=== PATIENT | male | born 1950 | race Caucasian/White ===

== ENCOUNTER 2018-07-16 16:07 | Inpatient (IN) | payer MEDICARE ==
[2018-07-16] MEDS ORDERED: NALOXONE 0.4 MG/ML 1 ML VIAL IV PRN (16:12)
[2018-07-16] MEDS ORDERED: SODIUM CHLORIDE 0.9% 500 ML 500 ML IV ONE (16:15)
--- NOTE | 2018-07-16 16:16 | ED ---
General Adult HPI - General Stated complaint: hypotensive, Weakness Time Seen by Provider: 07/16/18 16:09 Source: patient, EMS, RN notes reviewed, old records reviewed - History of Present Illness Initial comments: 68-year-old male presenting for evaluation of acute renal failure, dehydration, and hypotension. Patient was transferred from outside hospital with acute renal failure, need for nephrology consultation. Patient has no previous history of renal failure. He presented initially emergency department with increased weakness. Decreased oral intake. Laboratory studies obtained at outside hospital revealed acute renal failure with creatinine 4.7, and BUN of 96. Patient's baseline creatinine is 1.2. Patient did receive workup and 2.5 L of IV hydration. On arrival patient's blood pressure has normalized. He has no complaints other than some generalized fatigue. No chest pain, no dyspnea, no fever chills, no dysuria or hematuria. Review of Systems ROS Statement: Those systems with pertinent positive or pertinent negative responses have been documented in the HPI. ROS Other: All systems not noted in ROS Statement are negative. General Exam General appearance: alert, in no apparent distress Head exam: Present: atraumatic, normocephalic Eye exam: Present: normal appearance, PERRL ENT exam: Present: mucous membranes dry Neck exam: Present: normal inspection. Absent: tenderness, meningismus Respiratory exam: Present: normal lung sounds bilaterally. Absent: respiratory distress, wheezes Cardiovascular Exam: Present: regular rate, normal rhythm GI/Abdominal exam: Present: soft. Absent: distended, tenderness, guarding Extremities exam: Present: normal inspection, normal capillary refill. Absent: pedal edema Neurological exam: Present: alert, oriented X3, CN II-XII intact. Absent: motor sensory deficit Psychiatric exam: Present: normal affect, normal mood Skin exam: Present: warm, dry, intact. Absent: cyanosis, diaphoretic Medical Decision Making - Medical Decision Making 68-year-old male transferred with acute renal failure. Laboratory studies from outside hospital reviewed, white blood cell count 14.4, hemoglobin 10.8, sodium 132, potassium 3.9, CO2 is 17, creatinine 4.7, BUN 96. Baseline creatinine 1.2. Acidosis likely secondary to uremia. He had a normal lactic acid. Troponin was negative. Urinalysis has not available medical record, this will be repeated. Head CT was reported as negative for any acute intracranial pathology according to the medical record. Chest x-ray was reported as COPD with no acute findings. These images will be loaded, however they're not available at the time of this dictation. All laboratory studies will be repeated. Patient will be kept on IV hydration. Patient will be admitted with nephrology on consult. Disposition Clinical Impression: Acute renal failure, Dehydration, Generalized weakness Disposition: ADMITTED IP TO THIS [facility] Condition: Stable Is patient prescribed a controlled substance at d/c from ED?: No Referrals: Marco A Cruz MD [Primary Care Provider] - 1-2 days Decision to Admit Reason: Admit from EC Decision Date: 07/16/18 Decision Time: 16:20
[2018-07-16] MEDS: SODIUM CHLORIDE 0.9% 1,000 ML IV SCH (16:23)
[2018-07-16 16:53] LABS: Basophils % (A) 0 %; Eosinophils # (A) 0.1 k/uL (0-0.7); Eosinophils % (A) 0 %; HCT 31.3 % (39.0-53.0); HGB 10.5 gm/dL (13.0-17.5); Lymphocytes # (A) 0.8 k/uL (1.0-4.8); Lymphocytes % (A) 6 %; MCH 30.2 pg (25.0-35.0); MCHC 33.6 g/dL (31.0-37.0); Mean Platelet Volume 9.6; Monocytes # (A) 0.5 k/uL (0-1.0); Monocytes % (A) 4 %; Neutrophils # (A) 11.9 k/uL (1.3-7.7); Neutrophils % (A) 87 %; Platelet Count 192 k/uL (150-450); RBC 3.47 m/uL (4.30-5.90); RDW 14.8 % (11.5-15.5); WBC 13.7 k/uL (3.8-10.6)
[2018-07-16 17:12] LABS: Albumin 3.1 g/dL (3.5-5.0); Calcium 7.6 mg/dL (8.4-10.2); Magnesium 2.7 mg/dL (1.6-2.3); Phosphorus 4.4 mg/dL (2.5-4.5); Potassium 3.6 mmol/L (3.5-5.1); Total Bilirubin 0.9 mg/dL (0.2-1.3); Total Protein 6.3 g/dL (6.3-8.2)
[2018-07-16] MEDS ORDERED: HYDROcodone/APAP 5-325MG 1 EACH TAB PO STA (18:08)
[2018-07-16 19:28] LABS: Appearance,Urine Turbid (Clear); Bacteria,Urine Many /hpf; Bilirubin,Urine Negative (Negative); Blood,Urine Moderate (Negative); Color,Urine Yellow; Glucose,Urine (UA) Negative (Negative); Ketones,Urine Negative (Negative); Leukocyte Esterase,Urine Large (Negative); Nitrite,Urine Negative (Negative); Protein,Urine 2+ (Negative); RBC,Urine 51 /hpf (0-5); Specific Gravity,Urine 1.016 (1.001-1.035); Urobilinogen,Urine <2.0 mg/dL (<2.0); WBC,Urine >182 /hpf (0-5)
[2018-07-16] MEDS: ACETAMINOPHEN TAB 325 MG TAB PO PRN (23:36)
[2018-07-16] MEDS: FAMOTIDINE 20 MG TAB PO SCH (23:37)
[2018-07-16] MEDS: CARVEDILOL 12.5 MG TAB PO SCH (23:38)
[2018-07-17] MEDS: INSULIN DETEMIR (LEVEMIR) 100 UNIT/ML SYR SQ SCH ×3 (00:10→21:45)
[2018-07-17] MEDS: LEVOFLOXACIN 250 MG TAB PO SCH ×2 (00:11→21:42)
[2018-07-17 00:25] LABS: Glucose,Whole Blood 129 mg/dL (75-99)
[2018-07-17 05:08] LABS: Glucose,Whole Blood 71 mg/dL (75-99)
[2018-07-17 05:57] LABS: Glucose,Whole Blood 104 mg/dL (75-99)
[2018-07-17 06:29] LABS: Glucose,Whole Blood 82 mg/dL (75-99)
[2018-07-17] MEDS: CARVEDILOL 12.5 MG TAB PO SCH ×2 (06:43→17:08)
[2018-07-17] MEDS: SODIUM CHLORIDE 0.9% 1,000 ML IV SCH ×3 (07:56→16:42)
[2018-07-17] MEDS: ASPIRIN 325 MG TAB PO SCH (08:55)
[2018-07-17] MEDS: FAMOTIDINE 20 MG TAB PO SCH (08:56)
[2018-07-17] MEDS: CLOPIDOGREL 75 MG TAB PO SCH (08:56)
[2018-07-17] MEDS: EZETIMIBE 10 MG TAB PO SCH (08:56)
[2018-07-17 11:48] LABS: Glucose,Whole Blood 138 mg/dL (75-99)
--- NOTE | 2018-07-17 15:22 | HP ---
HISTORY AND PHYSICAL CHIEF COMPLAINT: Weakness. HISTORY OF PRESENT ILLNESS: This is the first known admission for this 68-year-old elderly male. He is brought to the emergency room and he may be confused. He states only that he was weak. In the emergency room, his blood pressure is low and it was felt that he was in possibly acute renal failure. There is a question whether he has had a myocardial infarction in the past and he is also all probably diabetic. Emergency room information was scant. Laboratory studies on admission revealed a white count of 13,700 with a hemoglobin of 10.5. Electrolytes were unremarkable. Calcium was low at 7.6 and magnesium was low at 2.7. Blood sugar was 129. It looked as though he had a urinary tract infection. BUN was 96 with creatinine of 4.45. Review of systems was essentially unobtainable. PHYSICAL EXAM: Blood pressure is 84/54 with a pulse of 73, respirations of 25 and he had a temperature of a 100.3. Head, ears, eyes, nose, mouth, and throat were unremarkable except for his esposito. His pupils equal, round, and seen to be engaged and seemed to be conjugate. Neck veins could not be assessed. Chest seems to be clear, but he did not take deep breaths. Cardiac exam demonstrated what sounded like sinus rhythm and no murmurs or extra sounds. Abdomen is soft and nontender and extremities were unremarkable. Other than what seemed to be confusion, he seemed to be neurologically intact. IMPRESSION: 1. Generalized weakness. 2. Dehydration. 3. Urinary tract infection. 4. Hypotension. 5. Renal failure. PLAN: 1. Bed rest. 2. IV fluids. 3. Rehydrate. 4. Consult with Nephrology. 5. Antibiotics. MMODL / IJN: [id number] /
[2018-07-17 17:03] LABS: Glucose,Whole Blood 118 mg/dL (75-99)
[2018-07-17] MEDS: Exenatide Microspheres [Bydureon Pen] 2 MG SQ SCH (17:23)
--- NOTE | 2018-07-17 18:32 | XR ---
EXAMINATION TYPE: XR chest 1V DATE OF EXAM: 07/17/2018 COMPARISON: Yesterday HISTORY: Heart failure TECHNIQUE: Single frontal view of the chest is obtained. FINDINGS: Portable chest shows no heart failure nor confluent pneumonic infiltrate. Costophrenic ang les are clear. There are sternal wires. There are chest leads. IMPRESSION: No active cardiopulmonary disease. No change.
--- NOTE | 2018-07-17 19:21 | US ---
EXAMINATION TYPE: US renals and bladder DATE OF EXAM: 07/17/2018 COMPARISON: NONE CLINICAL HISTORY: rf. EXAM MEASUREMENTS: Right Kidney: 11.7 x 4.8 x 5.4 cm Left Kidney: 11.5 x 6.7 x 6.2cm Patient of large body habitus. Splenomegaly noted, 16.5cm Right Kidney: No hydronephrosis or masses seen Left Kidney: No hydronephrosis or masses seen Bladder: wnl IMPRESSION: No renal mass or obstruction. There is moderate splenomegaly.
[2018-07-17 20:35] LABS: Glucose,Whole Blood 117 mg/dL (75-99)
--- NOTE | 2018-07-17 22:02 | PN ---
PROGRESS NOTE DATE OF SERVICE: 07/17/2018 CHIEF COMPLAINT: Hypotension, dehydration and renal failure with prerenal azotemia. HISTORY OF PRESENT ILLNESS: This gentleman is just about the same. He seems slightly more alert. He is still dehydrated. PHYSICAL EXAMINATION: Chest is clear. Cardiac exam is normal. The abdomen is soft. Skin is dry. He is a little bit more alert than on admission. IMPRESSION: 1. Hypotension. 2. Dehydration. 3. Acute renal failure. PLAN: Continue with rehydration and then repeat labs. MMODL / IJN: [id number] /
[2018-07-17] MEDS: ACETAMINOPHEN TAB 325 MG TAB PO PRN (22:56)
--- NOTE | 2018-07-17 22:56 | CONS ---
CONSULTATION REASON FOR CONSULT: Renal failure. HISTORY OF PRESENT ILLNESS: The patient is a 68-year-old male who was admitted to the hospital with complaints of weakness and not feeling well. He was also short of breath. The patient denies any prior history of kidney diseases. His blood pressure was low at about 106 mmHg systolic when he came in, however, it appears that he has been as low as 85 mm of Hg. Serum creatinine was 4.45 mg/dL yesterday. Previous labs are not available in the computer. The patient did admit to history of use of NSAIDs prior to admission. He had been on Motrin for back pain. The patient denies any chest pains. He did not have any abdominal pain or diarrhea. No nausea or vomiting. PAST MEDICAL HISTORY: Hypertension, type 2 diabetes, osteoarthritis, dyslipidemia, and gastroesophageal reflux disease. SOCIAL HISTORY: Negative for smoking, drug abuse or alcohol abuse. MEDICATIONS: Medications at home prior to admission included Ultram, Zantac, Mevacor, insulin, Motrin, Zetia, Coreg, Plavix, aspirin, vitamin C. REVIEW OF SYSTEMS: As per HPI. Other systems negative. PHYSICAL EXAMINATION: Patient is comfortable. He is not in any acute distress. He is alert and oriented x3. Blood pressure this morning was 116/56, heart rate of 78 per minute, patient is afebrile. Examination of the heart S1, S2. Examination lungs bilateral breath sounds are heard. Abdomen is soft, nontender, obese. Examination lower extremities shows no significant edema. CROSS ENTERPRISE INTEGRATOR exam is grossly intact. Patient moving all 4 extremities. LAB: From yesterday, sodium 135, potassium 3.6, BUN 96, serum creatinine 4.45, calcium 7.6, magnesium 2.7, albumin 3.1. UA shows 2+ protein, WBCs more than 182, moderate blood. ASSESSMENT: 1. Acute kidney injury secondary to hypotension and NSAIDs as well as underlying urine tract infection, maintained on IV fluids. Maintain patient off of RUY inhibitors and NSAIDs. Repeat labs today. 2. Urinary tract infection maintained on antibiotics. Follow up on urine cultures. 3. Anemia, rule out iron deficiency. 4. Rule out chronic kidney disease. 5. Non-gap metabolic acidosis secondary to renal failure. 6. Dyslipidemia. 7. Type 2 diabetes. PLAN: Maintain patient on IV fluids. Check chest x-ray. Repeat labs today. Avoid NSAIDs and avoid RUY inhibitors. Thank you for this consultation. We will continue to follow the patient with you during his hospitalization. MMMALIK / LIYAHN: [id number] /
[2018-07-18] MEDS: SODIUM CHLORIDE 0.9% 1,000 ML IV SCH ×2 (00:32→08:45)
[2018-07-18 06:24] LABS: Glucose,Whole Blood 85 mg/dL (75-99)
[2018-07-18 06:42] LABS: Basophils % (A) 0 %; Eosinophils % (A) 0 %; HCT 31.7 % (39.0-53.0); HGB 9.8 gm/dL (13.0-17.5); Hypochromasia Slight; Lymphocytes # (A) 0.5 k/uL (1.0-4.8); Lymphocytes % (A) 5 %; MCH 28.9 pg (25.0-35.0); MCHC 30.9 g/dL (31.0-37.0); MCV 93.4 fL (80.0-100.0); Mean Platelet Volume 8.8; Monocytes # (A) 0.5 k/uL (0-1.0); Monocytes % (A) 5 %; Neutrophils # (A) 8.3 k/uL (1.3-7.7); Neutrophils % (A) 87 %; Platelet Count 172 k/uL (150-450); RDW 14.6 % (11.5-15.5); WBC 9.5 k/uL (3.8-10.6)
[2018-07-18 06:49] LABS: Potassium 4.3 mmol/L (3.5-5.1)
[2018-07-18] MEDS: CARVEDILOL 12.5 MG TAB PO SCH ×2 (07:31→17:16)
[2018-07-18] MEDS: ASPIRIN 325 MG TAB PO SCH (08:49)
[2018-07-18] MEDS: CLOPIDOGREL 75 MG TAB PO SCH (08:49)
[2018-07-18] MEDS: FAMOTIDINE 20 MG TAB PO SCH (08:49)
[2018-07-18] MEDS: INSULIN DETEMIR (LEVEMIR) 100 UNIT/ML SYR SQ SCH ×2 (08:49→22:11)
[2018-07-18] MEDS: EZETIMIBE 10 MG TAB PO SCH (08:49)
[2018-07-18 11:30] LABS: Glucose,Whole Blood 201 mg/dL (75-99)
[2018-07-18] MEDS: INSULIN ASPART (NovoLOG) 100 UNIT/ML VIAL SQ SCH ×4 (13:37→22:11)
[2018-07-18 15:53] LABS: Albumin 2.6 g/dL (3.5-5.0); Calcium 7.9 mg/dL (8.4-10.2); Potassium 4.1 mmol/L (3.5-5.1); Total Bilirubin 1.3 mg/dL (0.2-1.3); Total Protein 5.4 g/dL (6.3-8.2)
[2018-07-18 15:59] LABS: Appearance,Urine Turbid (Clear); Bacteria,Urine Occasional /hpf; Bilirubin,Urine Negative (Negative); Blood,Urine Large (Negative); Color,Urine Light Red; Glucose,Urine (UA) Negative (Negative); Ketones,Urine Negative (Negative); Leukocyte Esterase,Urine Large (Negative); Nitrite,Urine Negative (Negative); PH, Urine 5.5 (5.0-8.0); Protein,Urine 1+ (Negative); RBC,Urine >182 /hpf (0-5); Specific Gravity,Urine 1.018 (1.001-1.035); Urobilinogen,Urine <2.0 mg/dL (<2.0)
--- NOTE | 2018-07-18 16:05 | PN ---
PROGRESS NOTE CHIEF COMPLAINT: Hypotension, dehydration, acute renal failure and weakness. HISTORY OF PRESENT ILLNESS: This gentleman is improving slightly, but he is still not very active. He is still short of breath. PHYSICAL EXAMINATION: He has rales at the bases. Cardiac exam is normal. Abdomen is soft and nontender. It is protuberant. IMPRESSION: 1. Hypotension. 2. Dehydration. 3. Prerenal azotemia. 4. Chronic renal failure. 5. Diabetes. 6. Anemia. PLAN: Continue to monitor and follow hemoglobin, which is 9.8. Kidney function is also being watched, and his BUN is down this 77 with a creatinine of 3.2. Will send his urine for culture. Will repeat labs and a chest x-ray and set up discharge planning. MMZANEL / LIYAHN: [id number] /
[2018-07-18 16:15] LABS: Basophils % (A) 0 %; Eosinophils % (A) 0 %; HCT 32.2 % (39.0-53.0); HGB 10.2 gm/dL (13.0-17.5); Hypochromasia Slight; Lymphocytes # (A) 0.5 k/uL (1.0-4.8); Lymphocytes % (A) 6 %; MCH 29.6 pg (25.0-35.0); MCHC 31.6 g/dL (31.0-37.0); MCV 93.5 fL (80.0-100.0); Mean Platelet Volume 9.1; Monocytes # (A) 0.3 k/uL (0-1.0); Monocytes % (A) 4 %; Neutrophils # (A) 7.7 k/uL (1.3-7.7); Neutrophils % (A) 89 %; Platelet Count 193 k/uL (150-450); RBC 3.44 m/uL (4.30-5.90); RDW 14.9 % (11.5-15.5); WBC 8.6 k/uL (3.8-10.6)
[2018-07-18 16:20] LABS: Glucose,Whole Blood 207 mg/dL (75-99)
[2018-07-18] MEDS: DEXTROSE 5% IN WATER 1,000 ML with SODIUM BICARB (1 MEQ/ML) 150 ML IV SCH (17:00)
--- NOTE | 2018-07-18 17:12 | PN ---
PROGRESS NOTE Patient is seen for followup for acute kidney injury. The patient is maintained on IV fluids. Renal function is improved with creatinine going down to 3.29 from 4.45 on initial admission. Overall, patient states he feels slightly better. He has been voiding. PHYSICAL EXAMINATION: Blood pressure was 131/63, heart rate 77 per minute. He is afebrile. Examination of the heart S1, S2. Examination lungs bilateral breath sounds are heard. Abdomen is soft, nontender. Examination lower extremities shows no significant edema. PHOTOGRAPHIC LITHOGRAPHER exam is grossly intact. LAB: Show sodium 139, potassium 4.6, chloride 115, CO2 is 14. BUN 77, serum creatinine 3.29, hemoglobin 9.8 g/dL. UA shows 1+ protein, blood large, RBCs more than 182. ASSESSMENT: 1. Acute kidney injury secondary to NSAIDs and hypotension and underlying urinary tract infection, maintained on IV fluids, currently improving. Patient is off of RUY inhibitors. 2. Urinary tract infection maintained on antibiotics. Follow up on urine cultures. 3. Possible underlying chronic kidney disease. 4. Non-gap metabolic acidosis secondary to renal failure, start IV bicarb. 5. Dyslipidemia. 6. Type 2 diabetes. PLAN: Change IV fluids to IV bicarb. Repeat labs in a.m. Continue to avoid nephrotoxic medications. MMODL / IJN: [id number] /
--- NOTE | 2018-07-18 17:18 | XR ---
EXAMINATION TYPE: XR chest 2V DATE OF EXAM: 07/18/2018 COMPARISON: 07/17/2018 HISTORY: Short of breath TECHNIQUE: Frontal and lateral views of the chest are obtained. FINDINGS: Heart is enlarged. There is pulmonary edema. There are chest leads. There are sternal wire s. Costophrenic angles are fairly clear. IMPRESSION: There is evidence of congestive heart failure that is new compared to yesterday exam.
[2018-07-18] MEDS ORDERED: FUROSEMIDE 10 MG/ML 2 ML VIAL IV STA (20:03)
[2018-07-18] MEDS: LEVOFLOXACIN 250 MG TAB PO SCH (20:25)
[2018-07-18 20:56] LABS: Glucose,Whole Blood 202 mg/dL (75-99)
--- NOTE | 2018-07-18 22:00 | NM ---
EXAMINATION TYPE: NM pul vent and perfuse DATE OF EXAM: 07/18/2018 COMPARISON: NONE HISTORY: TECHNIQUE: Utilizing inhalation of 67.1 mCi Tc 99m DTPA aerosol and intravenous injection of 5.13 mC i of Tc 99m MAA, ventilation and perfusion images are acquired post injection in multiple projections . FINDINGS: There is fairly normal tracer distribution on the ventilation images. Perfusion images are within nor mal limits. There is no mismatch. IMPRESSION: Negative exam. There is a very low probability of pulmonary embolism.
[2018-07-19] MEDS: DEXTROSE 5% IN WATER 1,000 ML with SODIUM BICARB (1 MEQ/ML) 150 ML IV SCH (03:51)
[2018-07-19 04:55] LABS: Glucose,Whole Blood 145 mg/dL (75-99)
[2018-07-19 06:41] LABS: Basophils % (A) 0 %; Eosinophils # (A) 0.1 k/uL (0-0.7); Eosinophils % (A) 1 %; HCT 30.7 % (39.0-53.0); HGB 9.6 gm/dL (13.0-17.5); Hypochromasia Slight; Lymphocytes # (A) 0.5 k/uL (1.0-4.8); Lymphocytes % (A) 4 %; MCH 28.5 pg (25.0-35.0); MCHC 31.4 g/dL (31.0-37.0); MCV 90.9 fL (80.0-100.0); Mean Platelet Volume 8.4; Monocytes # (A) 0.5 k/uL (0-1.0); Monocytes % (A) 5 %; Neutrophils # (A) 9.5 k/uL (1.3-7.7); Neutrophils % (A) 88 %; Platelet Count 189 k/uL (150-450); RBC 3.38 m/uL (4.30-5.90); RDW 14.8 % (11.5-15.5); WBC 10.7 k/uL (3.8-10.6)
[2018-07-19 06:51] LABS: Calcium 8.1 mg/dL (8.4-10.2); Potassium 4.1 mmol/L (3.5-5.1)
[2018-07-19] MEDS: CARVEDILOL 12.5 MG TAB PO SCH ×2 (07:16→17:29)
[2018-07-19] MEDS: INSULIN ASPART (NovoLOG) 100 UNIT/ML VIAL SQ SCH ×7 (07:16→22:30)
[2018-07-19] MEDS ORDERED: FUROSEMIDE 10 MG/ML 4 ML VIAL IV STA (07:24)
[2018-07-19] MEDS: EZETIMIBE 10 MG TAB PO SCH (08:14)
[2018-07-19] MEDS: ASPIRIN 325 MG TAB PO SCH (08:14)
[2018-07-19] MEDS: FAMOTIDINE 20 MG TAB PO SCH (08:14)
[2018-07-19] MEDS: CLOPIDOGREL 75 MG TAB PO SCH (08:15)
[2018-07-19 11:30] LABS: Glucose,Whole Blood 154 mg/dL (75-99)
--- NOTE | 2018-07-19 11:40 | PN ---
PROGRESS NOTE Patient is seen for followup for acute kidney injury. He has been maintained on IV fluids. However, last night, patient was increasingly short of breath and chest x-ray showed evidence of pulmonary vascular congestion. Therefore, IV fluids were held. The patient also received a dose of Lasix 20 mg IV push. He is still complaining of shortness of breath. He denies any chest pains. The patient has been voiding. His 24 hour urine output is about 2.2 L. PHYSICAL EXAMINATION: Blood pressure this morning was 125/65, heart rate is 72 per minute, patient is afebrile. Examination of the heart S1, S2. Examination lungs, bilateral basal crackles are heard. Abdomen is soft, obese. Examination of lower extremities shows no significant edema. HALVER MACHINE OPERATOR exam is grossly intact. LABS: Show hemoglobin 9.6, sodium 140, potassium 4.1, chloride 114, BUN 75, serum creatinine 3.24, calcium was 8.1. ASSESSMENT: 1. Acute kidney injury, nonoliguric. Renal function has improved to some degree with IV fluids. However, the creatinine remains elevated at 3.24. On admission it was at 4.45. We do not have any previous labs available for comparison. This may be close to his baseline if the patient has underlying significant chronic kidney disease. There is no evidence of obstruction noted on the kidney ultrasound and the UA shows 1+ protein and significant pyuria. Urine culture is in progress. Patient is maintained on antibiotics. I will order a set of serologies given the underlying proteinuria and the negative urine cultures given the significant pyuria. We should also try and obtain his previous labs as outpatient for baseline renal function. 2. Volume overload. Continue off of IV fluids. I will repeat another dose of Lasix this morning. 3. Rule out cardiomyopathy. Recommend checking an echocardiogram for ejection fraction. 4. Non gap metabolic acidosis secondary to renal failure. We can switch to oral sodium bicarb. The acidosis is improved. PLAN: Check serologies, check urine eosinophils, repeat IV Lasix. Check echocardiogram and check iron studies as well. MMODL / IJN: [id number] /
[2018-07-19 16:36] LABS: Glucose,Whole Blood 178 mg/dL (75-99)
--- NOTE | 2018-07-19 17:37 | DS ---
DISCHARGE SUMMARY CHIEF COMPLAINT: Hypotension, dehydration, renal failure. HISTORY OF PRESENT ILLNESS AND PHYSICAL EXAM: The details of this man's history and physical can be found in the initial workup. LABORATORY STUDIES: While he was in the hospital, he had laboratory studies, details of which can be found in the laboratory section of his chart. COURSE IN HOSPITAL: After admission, he was placed on bedrest, started on intravenous fluids and rehydrated. His blood pressures remained somewhat out of control and he was in renal failure. He was also anemic with hemoglobin of 9.6. There was no GI bleeding. He continued to improve. Initially his suggested that she would prefer he go to rehab, but the case was discussed with the patient and he refused. He was doing well enough that it was felt that he could go home on the . He will go home on light activity about the house. No added salt, cardiac complex carbohydrate diet. His insulin management will be decreased from what it had been at home. He will remain on his other medications. He will either follow up with his own physician or come to my office. He does live a ways from [facility]. FINAL DIAGNOSES: 1. Dehydration. 2. Prerenal azotemia. 3. Chronic renal failure. 4. Poorly-controlled type 2 insulin-dependent diabetes mellitus. 5. Congestive heart failure. 6. Coronary artery disease. 7. Anemia. 8. History of coronary artery disease. OPERATIONS: None. CONSULTATIONS: None. He is improved. GURU / SIMONE: [id number] /
[2018-07-19] MEDS: ACETAMINOPHEN TAB 325 MG TAB PO PRN (20:42)
[2018-07-19] MEDS: LEVOFLOXACIN 250 MG TAB PO SCH (20:42)
[2018-07-19] MEDS: SODIUM BICARBONATE TAB 650 MG TAB PO SCH (20:42)
[2018-07-19 20:51] LABS: Glucose,Whole Blood 161 mg/dL (75-99)
--- NOTE | 2018-07-19 22:03 | PN ---
PROGRESS NOTE It was planned that this gentleman would go home, but he is quite dyspneic. Cardiology has ordered an echocardiogram for tomorrow. The discharge was discussed with the patient and the family. Even though he is anxious to leave, he agrees to stay. He is not likely to do well at home and his discharge is canceled. GURU / LIYAHN: [id number] /
[2018-07-19] MEDS: INSULIN DETEMIR (LEVEMIR) 100 UNIT/ML SYR SQ SCH (22:29)
[2018-07-20 01:56] LABS: Glucose,Whole Blood 133 mg/dL (75-99)
--- NOTE | 2018-07-20 02:46 | XR ---
EXAM: XR Chest, 1 View CLINICAL HISTORY: ITS.REASON XR Reason: SOB TECHNIQUE: Frontal view of the chest. COMPARISON: No relevant prior studies available. FINDINGS: Lungs: Unremarkable. No consolidation. Pleural space: Unremarkable. No pneumothorax. Heart: No pneumomediastinum. Mediastinum: Unremarkable. Bones/joints: No definite fracture. IMPRESSION: No acute findings.
[2018-07-20] MEDS ORDERED: FUROSEMIDE 10 MG/ML 4 ML VIAL IV STA (03:08)
[2018-07-20 05:43] LABS: Glucose,Whole Blood 123 mg/dL (75-99)
[2018-07-20] MEDS: CARVEDILOL 12.5 MG TAB PO SCH ×2 (06:52→17:54)
[2018-07-20] MEDS: INSULIN ASPART (NovoLOG) 100 UNIT/ML VIAL SQ SCH ×7 (06:53→21:21)
[2018-07-20] MEDS: ASPIRIN 325 MG TAB PO SCH (08:35)
[2018-07-20] MEDS: EZETIMIBE 10 MG TAB PO SCH (08:35)
[2018-07-20] MEDS: FAMOTIDINE 20 MG TAB PO SCH (08:35)
[2018-07-20] MEDS: CLOPIDOGREL 75 MG TAB PO SCH (08:35)
[2018-07-20] MEDS: SODIUM BICARBONATE TAB 650 MG TAB PO SCH ×2 (08:35→21:21)
[2018-07-20] MEDS: DEXTROSE 5% IN WATER 1,000 ML with SODIUM BICARB (1 MEQ/ML) 150 ML IV SCH (08:36)
[2018-07-20 10:13] LABS: Calcium 8.1 mg/dL (8.4-10.2); Potassium 3.9 mmol/L (3.5-5.1)
[2018-07-20 11:05] LABS: Hepatitis B Surface AB- Quant 3.5 mIU/mL; Hepatitis C IgG Antibody Non-Reactive (Non-Reactive)
[2018-07-20 11:10] LABS: Anti-DNA, DS unit <1.0 IU/mL; DNA Double-Stranded NEGATIVE (NEGATIVE)
[2018-07-20 11:34] LABS: Glucose,Whole Blood 185 mg/dL (75-99)
--- NOTE | 2018-07-20 11:51 | CDI ---
Documentation Clarification Form Date: 07/20/2018 11:45:04 AM From: Vicki AdlerViverosPIETER alex, CCDS Admit Date: 07/16/2018 4:12:00 PM Patient Name: Ritchie Salas Visit Number: [id number] Discharge Date: ATTENTION: The Clinical Documentation Specialists (CDI) and [facility] Coding Staff appreciate your assistance in clarifying documentation. Please respond to the clarification below the line at the bottom and electronically sign. The CDI & [facility] Coding staff will review the response and follow-up if needed. Please note: Queries are made part of the Legal Health Record. If you have any questions, please contact the author of this message via ITS. Dr. Mily Verdin: A diagnosis of anemia lacks specificity to accurately reflect your patients severity of condition and clarification is needed. Per the nephrology consult: rule out iron deficiency anemia. History/Risk Factors: Hypertension, DM II, Osteoarthritis, Dyslipidemia & GERD. Clinical indicators: Transferred from outside facility with acute renal failure for nephrology workup. Hemoglobin: Hgb 10.5 - 9.8 - 10.2 - 9.6 Hematocrit: Hct 31.3 - 31.7 - 32.2 - 30.7 Treatment: IV Narcan, IV fluid 125, IV fluid bolus, Insulin sliding scale, IV Dextrose/Water, IV Lasix. In order to capture the severity of condition, please clarify the type of anemia and etiology if known: Acute blood loss anemia Acute on chronic blood loss anemia Chronic blood loss anemia Iron deficiency anemia Hemolytic anemia Drug induced anemia Nutritional anemia Anemia of chronic kidney disease Unable to determine Other, please specify MTDD
--- NOTE | 2018-07-20 12:00 | CDI ---
Documentation Clarification Form Date: 07/20/2018 11:52:02 AM From: Vicki Viveros CCS, CCDS Admit Date: 07/16/2018 4:12:00 PM Patient Name: Ritchie Salas Visit Number: [id number] Discharge Date: ATTENTION: The Clinical Documentation Specialists (CDI) and [facility] Coding Staff appreciate your assistance in clarifying documentation. Please respond to the clarification below the line at the bottom and electronically sign. The CDI & [facility] Coding staff will review the response and follow-up if needed. Please note: Queries are made part of the Legal Health Record. If you have any questions, please contact the author of this message via ITS. Dr. Mily Verdin or Dr. Aj Tobias: Patient was admitted with acute renal failure, dehydration & UTI. Per the nephrology PN 07/19: "However, the creatinine remains elevated at 3.24. On admission it was at 4.45. We do not have any previous labs available for comparison. This may be close to his baseline if the patient has underlying significant chronic kidney disease. There is no evidence of obstruction noted on the kidney ultrasound History/Risk Factors: Hypertension, DM II, Osteoarthritis, Dyslipidemia & GERD. Clinical Indicators: Admitted from outside facility with acute renal failure. Current: BUN 96 - 77 - 75 - 75 - 83 Current: Cr 4.45 - 3.29 - 3.33 - 3.24 - 3.58 Current GFR: 13 - 19 - 18 - 19 - 17 Patients Baseline BUN/Cr/GFR: poss CKD, no previous labs to compare. Treatment: IV Narcan, IV flid 125, IV flid bolus, IV Dextrose/Water, IV Lasix, Insulin sliding scale. In order to capture the severity of condition, please clarify if the condition signifies: CKD Stage 2 (GFR 60-89) CKD Stage 3 (GFR 30-59) CKD Stage 4 (GFR 15-29) CKD Stage 5 (GFR <15) ESRD Other, please specify Unable to determine MTDD
--- NOTE | 2018-07-20 14:44 | PN ---
PROGRESS NOTE Patient is seen for followup for acute kidney injury. Last night, patient was short of breath again and respiratory distress requiring Lasix IV. He is currently breathing much better. IV fluids are discontinued. Serum creatinine staying at about 3.2-3.5 mg/dL. The patient was admitted, admitted with a creatinine of 4.45. Initially he received fluids which were now discontinued secondary to volume overload. We do not have any previous labs available for comparison. However, patient and his state that he has not had any kidney issues previously. Ultrasound has been unremarkable. UA does show evidence of pyuria with hematuria and proteinuria. Serologies have been sent out and so far they are negative. PHYSICAL EXAMINATION: On examination today, blood pressure was 103/52, heart rate 69 per minute. He is afebrile. Examination of the heart, S1, S2. Examination of the lungs, bilateral breath sounds are heard. Abdomen is soft, obese. Examination of the lower extremities shows edema 1+ bilaterally. MICROPHONE OPERATOR exam is grossly intact. LABS: Show sodium 140, potassium 3.9, CO2 is 17, BUN is 83, serum creatinine 3.58, calcium 8.1. ASSESSMENT: 1. Acute kidney injury. Rule out underlying acute GN, especially in view of no previous history of kidney disease. Serologies are negative thus far. We will try to document the normal creatinine prior to this admission. At this time there are no labs available for comparison and the. The I will continue off of IV fluids for now. 2. Volume overload, status post diuresis. I will maintain the patient on once a day dosing of IV Lasix. An echocardiogram has been ordered which is currently pending for ejection fraction. 3. Metabolic acidosis, non gap secondary to renal failure, maintained on oral sodium bicarb. The IV bicarb has been discontinued secondary to volume overload. 4. Dyslipidemia. 5. Anemia, rule out iron deficiency, possible anemia of chronic disease. PLAN: Continue oral sodium bicarb. Continue off of IV fluids. Maintain patient on daily dose of IV Lasix. A follow up on echocardiogram and try to obtain baseline renal function prior to admission. I will also check iron studies for workup for anemia. MMODL / IJN: [id number] /
[2018-07-20 16:27] LABS: Glucose,Whole Blood 267 mg/dL (75-99)
--- NOTE | 2018-07-20 17:41 | PN ---
PROGRESS NOTE CHIEF COMPLAINT: Hypotension, renal failure, difficulty breathing. HISTORY OF PRESENT ILLNESS: This gentleman is still quite dyspneic even when lying in bed. Echocardiogram has been ordered. PHYSICAL EXAM: Breath sounds are diminished with scattered rales. Cardiac exam is unremarkable and the abdomen is protuberant, soft, nontender. Extremities: Normal. IMPRESSION: 1. Congestive heart failure. 2. Renal failure. PLAN: Await results of echocardiogram and then make further adjustments at bedtime. Prognosis is poor. MMODL / IJN: [id number] /
[2018-07-20 21:13] LABS: Glucose,Whole Blood 189 mg/dL (75-99)
[2018-07-20] MEDS: INSULIN DETEMIR (LEVEMIR) 100 UNIT/ML SYR SQ SCH (21:21)
[2018-07-20] MEDS: LEVOFLOXACIN 250 MG TAB PO SCH (21:22)
[2018-07-21] MEDS: DEXTROSE 5% IN WATER 1,000 ML with SODIUM BICARB (1 MEQ/ML) 150 ML IV SCH (03:07)
[2018-07-21 06:25] LABS: Glucose,Whole Blood 155 mg/dL (75-99)
[2018-07-21] MEDS: INSULIN ASPART (NovoLOG) 100 UNIT/ML VIAL SQ SCH ×7 (07:04→21:00)
[2018-07-21] MEDS: CARVEDILOL 12.5 MG TAB PO SCH ×2 (07:05→17:30)
--- NOTE | 2018-07-21 07:25 | ECHOF ---
Referral Reason:chf MEASUREMENTS -------- HEIGHT: 170.2 cm WEIGHT: 113.4 kg BP: 120/61 RVIDd: 3.6 cm (< 3.3) IVSd: 1.3 cm (0.6 - 1.1) LVIDd: 4.7 cm (3.9 - 5.3) LVPWd: 1.3 cm (0.6 - 1.1) IVSs: 1.8 cm LVIDs: 3.8 cm LVPWs: 1.6 cm LA Diam: 3.7 cm (2.7 - 3.8) LAESV Index (A-L): 31.39 ml/m Ao Diam: 3.7 cm (2.0 - 3.7) AV Cusp: 1.9 cm (1.5 - 2.6) MV EXCURSION: 23.254 mm (> 18.000) MV EF SLOPE: 53 mm/s (70 - 150) EPSS: 0.9 cm MV E Sean: 1.39 m/s MV DecT: 287 ms MV A Sean: 1.03 m/s MV E/A Ratio: 1.35 AV maxP.10 mmHg AV meanP.10 mmHg RAP: 5.00 mmHg RVSP: 39.99 mmHg FINDINGS -------- Sinus rhythm. This was a technically difficult study with suboptimal views. The left ventricular size is normal. There is mild concentric left ventricular hypertrophy. Overa ll left ventricular systolic function is mildly impaired with, an EF between 45 - 50 %. Mid lateral LV wall motion is hypokinetic. Atypical septal wall motion The right ventricle is mildly enlarged. LA is midly dilated 29-33ml/m2. The right atrium is normal in size. 5 ml of Lumason was utilized for enhancement of images. There is mild aortic valve sclerosis. Trace amount of aortic regurgitation. Peak/mean gradient a cross the Aortic Valve is 13.10mmHg / 6.10mmHg. The mitral valve leaflets are mildly thickened. Mild mitral annular calcification present. Mild tricuspid regurgitation present. There is mild pulmonary hypertension. The right ventricular systolic pressure, as measured by Doppler, is 39.99mmHg. Trace/mild (physiologic) pulmonic regurgitation. The aortic root size is normal. Normal inferior vena cava with normal inspiratory collapse consistent with estimated right atrial pre ssure of 5 mmHg. There is no pericardial effusion. CONCLUSIONS -------- 1. Sinus rhythm. 2. This was a technically difficult study with suboptimal views. 3. The left ventricular size is normal. 4. There is mild concentric left ventricular hypertrophy. 5. Mid lateral LV wall motion is hypokinetic. 6. Atypical septal wall motion 7. The right ventricle is mildly enlarged. 8. LA is midly dilated 29-33ml/m2. 9. The right atrium is normal in size. 10. 5 ml of Lumason was utilized for enhancement of images. 11. There is mild aortic valve sclerosis. 12. Trace amount of aortic regurgitation. 13. Peak/mean gradient across the Aortic Valve is 13.10mmHg / 6.10mmHg. 14. The mitral valve leaflets are mildly thickened. 15. Mild mitral annular calcification present. 16. Mild tricuspid regurgitation present. 17. There is mild pulmonary hypertension. 18. The right ventricular systolic pressure, as measured by Doppler, is 39.99mmHg. 19. Trace/mild (physiologic) pulmonic regurgitation. 20. The aortic root size is normal. 21. Normal inferior vena cava with normal inspiratory collapse consistent with estimated right atrial pressure of 5 mmHg. 22. There is no pericardial effusion. SUPERVISOR SOUND TECHNICIAN: Rebeca Lanier RDCS
[2018-07-21] MEDS: ASPIRIN 325 MG TAB PO SCH (09:13)
[2018-07-21] MEDS: SODIUM BICARBONATE TAB 650 MG TAB PO SCH ×2 (09:13→20:59)
[2018-07-21] MEDS: EZETIMIBE 10 MG TAB PO SCH (09:13)
[2018-07-21] MEDS: FAMOTIDINE 20 MG TAB PO SCH (09:14)
[2018-07-21] MEDS: FUROSEMIDE 10 MG/ML 4 ML VIAL IV SCH (09:14)
[2018-07-21] MEDS: CLOPIDOGREL 75 MG TAB PO SCH (09:14)
[2018-07-21 11:14] LABS: Iron Saturation 7.58 (15.00-50.00)
--- NOTE | 2018-07-21 11:32 | P.PN ---
Subjective Patient is seen in follow-up for acute kidney injury. Renal function has been stable the last few days. Labs from today are pending. Patient is noted to have ESBL E. coli UTI. He is maintained on Lasix 40 mg orally once daily. Admits to good urine output. Ejection fraction 45-50%. Denies chest pain or shortness of breath. He wants to go home. Vital signs are stable. General: The patient appeared well nourished and normally developed. HEENT: Head exam is unremarkable. Neck is without jugular venous distension. LUNGS: Breath sounds decreased. HEART: Rate and Rhythm are regular. First and second heart sounds normal. No murmurs, rubs or gallops. ABDOMEN: Abdominal exam reveals normal bowel sounds. Non-tender and non- distended. No evidence of peritonitis. EXTREMITITES: No clubbing, cyanosis, or edema. Objective - Vital Signs Vital signs: Vital Signs Temp 98.6 F 07/21/18 08:00 Pulse 73 07/21/18 08:00 Resp 16 07/21/18 08:00 BP 135/61 07/21/18 08:00 Pulse Ox 91 L 07/21/18 08:00 Intake & Output 07/20/18 07/21/18 07/21/18 18:59 06:59 18:59 Intake Total 642 Output Total 700 425 Balance -58 -425 Weight 114 kg Intake: Oral 642 Output: Urine 700 425 Other: Voiding Method Urinal Urinal # Voids 1 - Labs CBC & Chem 7: 07/19/18 06:04 07/20/18 09:34 Labs: Abnormal Lab Results - Last 24 Hours (Table) 07/20/18 07/20/18 07/20/18 Range/Units 09:34 11:16 16:25 POC Glucose (mg/dL) 185 H 267 H (75-99) mg/dL Iron 15 L (65-175) ug/dL TIBC 198 L (228-460) ug/dL Iron Saturation 7.58 L (15.00-50.00) 07/20/18 07/21/18 Range/Units 21:12 06:15 POC Glucose (mg/dL) 189 H 155 H (75-99) mg/dL Iron (65-175) ug/dL TIBC (228-460) ug/dL Iron Saturation (15.00-50.00) Microbiology - Last 24 Hours (Table) 07/18/18 15:36 Urine Culture - Final Urine,Voided Escherichia coli Assessment and Plan Plan: Assessment: 1. Acute kidney injury secondary to ATN secondary to infection. Also component of cardiorenal syndrome. Creatinine 3.5 L of yesterday. Unknown baseline renal function. No hydronephrosis noted on renal ultrasound. Serologic workup has been negative so far. 2. ESBL E. coli urinary tract infection. 3. Systolic CHF with ejection fraction of 45-50%. 4. Insulin-dependent diabetes mellitus. 5. Metabolic acidosis secondary to acute kidney injury maintained on oral sodium bicarbonate. 6. Iron deficiency anemia. Plan: Maintain Lasix 40 mg IV daily. Follow-up pending serologies. Avoid nephrotoxins. Hold off on IV iron due to infection. Obtain prior labs, particularly renal function panel, from his PCP, Dr. Marco A Bentley. Continue to monitor renal function and urine output.
[2018-07-21 11:44] LABS: Glucose,Whole Blood 201 mg/dL (75-99)
--- NOTE | 2018-07-21 12:59 | CONS ---
CONSULTATION CHIEF COMPLAINT: Cardiac evaluation. Ritchie is a 68-year-old gentleman with history of coronary artery disease, status post CABG, hypertension, dyslipidemia, insulin-requiring diabetes, who was admitted to hospital with symptoms of not feeling well, fatigue and tired and has had episodes of hypotension. Due to this, he presented to the emergency room and subsequently got transferred and admitted. He has been diagnosed with urinary tract infection and is being treated with IV antibiotics. He had acute renal failure for which Nephrology had been seeing him. He denies chest pain, difficulty in breathing, leg edema, palpitations, dizziness or syncope. His symptoms have gotten better since being admitted. He has received IV fluids and IV antibiotics. He is currently on aspirin, Coreg, Plavix, Lasix, insulin, Levaquin. ALLERGIES: There are no known drug allergies. FAMILY HISTORY: Negative for premature coronary artery disease. SOCIAL HISTORY: Negative for current smoking, EtOH abuse, or drug abuse. REVIEW OF SYSTEMS: HEENT is unremarkable. CARDIAC: As described above. RESPIRATORY:: As described above. GI: Negative. GENITOURINARY: Negative. ALLERGY/IMMUNOLOGY: Negative. SKIN: Negative. MUSCULOSKELETAL: Significant for arthritis. PSYCHOSOCIAL: Negative. ENDOCRINE: Negative. DERM: Negative. CONSTITUTIONAL: Negative. ONCOLOGICAL: Negative. INFORMATION TECHNOLOGY ANALYST: Currently negative. PHYSICAL EXAM: Patient is comfortable at rest. VITAL SIGNS: Stable. chest exam reveals good air entry bilaterally. Heart exam reveals first and second heart sounds. No gallop. No murmur. Abdomen is soft, nontender. Exam of extremities did not reveal any edema. Peripheral pulses are palpable. INFORMATION TECHNOLOGY ANALYST exam did not reveal focal neurological deficits. LABS: Have been reviewed. Potassium is 4.1, BUN is 75, creatinine is 3.2, hemoglobin is 9.6, platelet count is 189. ASSESSMENT: 1. Coronary artery disease, status post coronary artery bypass grafting. 2. Urinary tract infection. 3. Acute onset renal failure. 4. History of hypotension. PLAN: Patient is doing well on his medications. Review the echo results. Ejection fraction is 45%. No further intervention at this time. Agree with the current management plans. MMODL / IJN: [id number] /
[2018-07-21 14:45] LABS: C-ANCA <1:20 Titer (<1:20); P-ANCA <1:20 Titer (<1:20)
[2018-07-21 16:30] LABS: Glucose,Whole Blood 267 mg/dL (75-99)
--- NOTE | 2018-07-21 19:33 | PN ---
PROGRESS NOTE CHIEF COMPLAINT: Congestive heart failure and renal failure. HISTORY OF PRESENT ILLNESS: This gentleman continues to do poorly. He remains slightly agitated, dyspneic. He denies chest pain, fever or chills. He is not complaining of any significant chest pain, abdominal pain, or difficulty in the lower extremities. PHYSICAL EXAM: Chest demonstrates scattered rales and rhonchi throughout. Cardiac exam demonstrates an S4. The abdomen is protuberant, soft, and seems to be nontender without visceromegaly or masses. Extremities demonstrate about 2 to 3+ edema. IMPRESSION: 1. Congestive heart failure. 2. Renal failure. PLAN: Discussed case with Cardiology and we will probably increase diuretic management. Echocardiogram is ordered and this will be reviewed by Cardiology. MMODL / IJN: [id number] /
[2018-07-21 20:37] LABS: Glucose,Whole Blood 182 mg/dL (75-99)
[2018-07-21] MEDS: INSULIN DETEMIR (LEVEMIR) 100 UNIT/ML SYR SQ SCH (20:59)
[2018-07-21] MEDS: LEVOFLOXACIN 250 MG TAB PO SCH (22:50)
[2018-07-22 06:03] LABS: Glucose,Whole Blood 150 mg/dL (75-99)
[2018-07-22 06:16] LABS: Basophils % (A) 0 %; Eosinophils # (A) 0.2 k/uL (0-0.7); Eosinophils % (A) 1 %; HGB 9.3 gm/dL (13.0-17.5); Hypochromasia Slight; Lymphocytes # (A) 0.7 k/uL (1.0-4.8); Lymphocytes % (A) 3 %; MCH 28.5 pg (25.0-35.0); MCV 92.2 fL (80.0-100.0); Mean Platelet Volume 8.2; Monocytes # (A) 0.5 k/uL (0-1.0); Monocytes % (A) 2 %; Neutrophils # (A) 18.7 k/uL (1.3-7.7); Neutrophils % (A) 92 %; Platelet Count 281 k/uL (150-450); RBC 3.25 m/uL (4.30-5.90); RDW 14.8 % (11.5-15.5); WBC 20.4 k/uL (3.8-10.6)
[2018-07-22 06:34] LABS: Calcium 7.4 mg/dL (8.4-10.2); Magnesium 2.4 mg/dL (1.6-2.3); Potassium 3.7 mmol/L (3.5-5.1)
[2018-07-22] MEDS: CARVEDILOL 12.5 MG TAB PO SCH ×2 (06:42→16:33)
[2018-07-22] MEDS: INSULIN ASPART (NovoLOG) 100 UNIT/ML VIAL SQ SCH ×7 (06:58→21:29)
[2018-07-22] MEDS: DEXTROSE 5% IN WATER 1,000 ML with SODIUM BICARB (1 MEQ/ML) 150 ML IV SCH (06:58)
[2018-07-22] MEDS: FUROSEMIDE 10 MG/ML 4 ML VIAL IV SCH (08:46)
[2018-07-22] MEDS: FAMOTIDINE 20 MG TAB PO SCH (08:46)
[2018-07-22] MEDS: SODIUM BICARBONATE TAB 650 MG TAB PO SCH ×2 (08:46→21:29)
[2018-07-22] MEDS: ASPIRIN 325 MG TAB PO SCH (08:46)
[2018-07-22] MEDS: EZETIMIBE 10 MG TAB PO SCH (08:46)
[2018-07-22] MEDS: CLOPIDOGREL 75 MG TAB PO SCH (08:46)
--- NOTE | 2018-07-22 09:53 | P.CONS ---
History of Present Illness - Reason for Consult Consult date: 07/22/18 ESBL UTI - History of Present Illness This is a 68-year-old male. Patient gives history that he was not eating or drinking very much at home and forgot to take his medications for 1 week. He collapsed while in the shower and was initially seen at [facility] and then transferred to [facility] for acute kidney injury and nephrology consultation. Patient has been followed by Dr. Tobias for acute kidney injury. His initial creatinine at [facility] was 4.7 and today he is at 4.25 with the BUN of 99. White count is 20.4 and hemoglobin 9.3. Renal ultrasound shows no renal mass or obstruction. There is moderate splenomegaly. Chest x-ray shows evidence of congestive heart failure that is new. Pulmonary perfusion imaging was negative for PE. Patient is followed by cardiology for systolic heart failure as well. Review of Systems All systems: negative Constitutional: Reports fatigue, Reports poor appetite, Reports weakness, Denies chills, Denies fever Eyes: denies blurred vision, denies pain Ears, nose, mouth and throat: Reports vertigo, Denies dysphagia, Denies headache, Denies nasal congestion, Denies nasal discharge, Denies sore throat Cardiovascular: Reports dyspnea on exertion, Reports lightheadedness, Denies chest pain, Denies shortness of breath Respiratory: Denies cough Gastrointestinal: Reports loss of appetite, Denies abdominal pain, Denies diarrhea, Denies nausea, Denies vomiting Genitourinary: Reports urinary frequency, Reports urinary hesitancy, Reports urinary retention, Denies dysuria Musculoskeletal: Reports frequent falls, Reports gait dysfunction, Reports muscle weakness, Denies myalgias Integumentary: Denies pruritus, Denies rash, Denies wounds Neurological: Denies numbness, Denies weakness Psychiatric: Denies anxiety, Denies depression Endocrine: Denies fatigue, Denies weight change Past Medical History Past Medical History: Diabetes Mellitus, Hyperlipidemia, Hypertension History of Any Multi-Drug Resistant Organisms: ESBL Year Discovered:: 07/18/18 MDRO Source:: ESBL URINE Past Surgical History: Coronary Bypass/CABG, Orthopedic Surgery Additional Past Surgical History / Comment(s): open heart august 2017 4 vessel Past Psychological History: No Psychological Hx Reported Smoking Status: Former smoker Past Alcohol Use History: None Reported Additional Past Alcohol Use History / Comment(s): Patient was smoker of 2-3 packs per day for 35 years and quit 18 years ago. He denies any marijuana, illicit drug use or alcohol use. He lives at home with his and his 2 dogs and 1 cat in the home. No recent travel. Past Drug Use History: None Reported - Past Family History Father Family Medical History: Diabetes Mellitus, Pneumonia Mother Family Medical History: Diabetes Mellitus Medications and Allergies Home Medications Medication Instructions Recorded Confirmed Type Ascorbic Acid [Vitamin C] 1,000 mg PO DAILY 07/16/18 07/16/18 History Aspirin 325 mg PO DAILY 07/16/18 07/16/18 History Carvedilol [Coreg] 25 mg PO BID 07/16/18 07/16/18 History Clopidogrel Bisulfate [Plavix] 75 mg PO DAILY 07/16/18 07/16/18 History Exenatide Microspheres [Bydureon 2 mg SQ FR 07/16/18 07/16/18 History Pen] Ezetimibe [Zetia] 10 mg PO DAILY 07/16/18 07/16/18 History Ibuprofen [Motrin] 800 mg PO Q8H PRN 07/16/18 07/16/18 History Lovastatin [Mevacor] 20 mg PO HS 07/16/18 07/16/18 History Ranitidine HCl [Zantac] 150 mg PO BID 07/16/18 07/16/18 History traMADol HCL [Ultram] 50 mg PO Q6H PRN 07/16/18 07/16/18 History INSULIN ASPART (NovoLOG) [NovoLOG 10 unit SQ AC-TID #1 vial 07/19/18 Rx (formulary)] Insulin Detemir (Levemir) [Levemir] 40 unit SQ HS 60 Days #1 vial 07/19/18 Rx Insulin Lispro [humaLOG Kwikpen] 20 unit SQ BID #1 insuln.pen 07/19/18 Rx Levofloxacin [Levaquin] 250 mg PO HS #10 tab 07/19/18 Rx Sodium Bicarbonate Tab 650 mg PO BID #60 tab 07/19/18 Rx Allergies Allergy/AdvReac Type Severity Reaction Status Date / Time No Known Allergies Allergy Verified 07/16/18 17:05 Physical Exam Vitals: Vital Signs Temp Pulse Resp BP Pulse Ox 07/22/18 08:00 98.5 F 68 108/48 97 04/17/19 04:00 98.3 F 70 20 99/54 99 07/22/18 00:00 98.6 F 71 21 95/52 98 07/21/18 20:00 73 22 07/21/18 19:54 98.7 F 73 22 123/58 99 07/21/18 16:00 98.5 F 75 16 117/58 98 07/21/18 15:28 16 07/21/18 12:00 68 16 92/57 97 07/21/18 11:49 16 Intake and Output 07/21/18 07/22/18 07/22/18 22:59 06:59 14:59 Intake Total 0 240 Output Total 550 250 Balance -550 -250 240 Intake: Oral 0 240 Output: Urine 550 250 Other: Voiding Method Urinal Urinal # Voids 1 Weight 114 kg Gen: This is a 68-year-old male. HEENT: Head is atraumatic, normocephalic. Pupils equal, round. Sclerae is anicteric. NEUROLOGICAL: Patient is awake, alert and oriented x3. Results Results: Laboratory Results WBC 20.4 k/uL (3.8-10.6) H 07/22/18 05:42 RBC 3.25 m/uL (4.30-5.90) L 07/22/18 05:42 Hgb 9.3 gm/dL (13.0-17.5) L 07/22/18 05:42 Hct 30.0 % (39.0-53.0) L 07/22/18 05:42 MCV 92.2 fL (80.0-100.0) 07/22/18 05:42 MCH 28.5 pg (25.0-35.0) 07/22/18 05:42 MCHC 31.0 g/dL (31.0-37.0) 07/22/18 05:42 RDW 14.8 % (11.5-15.5) 07/22/18 05:42 Plt Count 281 k/uL (150-450) 07/22/18 05:42 Neutrophils % 92 % 07/22/18 05:42 Lymphocytes % 3 % 07/22/18 05:42 Monocytes % 2 % 07/22/18 05:42 Eosinophils % 1 % 07/22/18 05:42 Basophils % 0 % 07/22/18 05:42 Neutrophils # 18.7 k/uL (1.3-7.7) H 07/22/18 05:42 Lymphocytes # 0.7 k/uL (1.0-4.8) L 07/22/18 05:42 Monocytes # 0.5 k/uL (0-1.0) 07/22/18 05:42 Eosinophils # 0.2 k/uL (0-0.7) 07/22/18 05:42 Basophils # 0.0 k/uL (0-0.2) 07/22/18 05:42 Hypochromasia Slight 07/22/18 05:42 D-Dimer 4.45 mg/L FEU (<0.60) H 07/18/18 17:46 Sodium 138 mmol/L (137-145) 07/22/18 05:42 Potassium 3.7 mmol/L (3.5-5.1) 07/22/18 05:42 Chloride 106 mmol/L (98-107) 07/22/18 05:42 Carbon Dioxide 21 mmol/L (22-30) L 07/22/18 05:42 Anion Gap 11 mmol/L 07/22/18 05:42 BUN 99 mg/dL (9-20) H 07/22/18 05:42 Creatinine 4.25 mg/dL (0.66-1.25) H 07/22/18 05:42 Est GFR (CKD-EPI)AfAm 16 (>60 ml/min/1.73 sqM) 07/22/18 05:42 Est GFR (CKD-EPI)NonAf 14 (>60 ml/min/1.73 sqM) 07/22/18 05:42 Glucose 138 mg/dL (74-99) H 07/22/18 05:42 POC Glucose (mg/dL) 249 mg/dL (75-99) H 07/22/18 11:01 POC Glu Pattern Puncher Sayda Kiser 07/22/18 11:01 Calcium 7.4 mg/dL (8.4-10.2) L 07/22/18 05:42 Phosphorus 4.4 mg/dL (2.5-4.5) 07/16/18 16:18 Magnesium 2.4 mg/dL (1.6-2.3) H 07/22/18 05:42 Iron 15 ug/dL (65-175) L 07/20/18 09:34 TIBC 198 ug/dL (228-460) L 07/20/18 09:34 Iron Saturation 7.58 (15.00-50.00) L 07/20/18 09:34 Total Bilirubin 1.3 mg/dL (0.2-1.3) 07/18/18 15:21 AST 74 U/L (17-59) H 07/18/18 15:21 ALT 62 U/L (21-72) 07/18/18 15:21 Alkaline Phosphatase 163 U/L (38-126) H 07/18/18 15:21 Total Protein 5.4 g/dL (6.3-8.2) L 07/18/18 15:21 Albumin 2.6 g/dL (3.5-5.0) L 07/18/18 15:21 Urine Color Light Red 07/18/18 15:36 Urine Appearance Turbid (Clear) 07/18/18 15:36 Urine pH 5.5 (5.0-8.0) 07/18/18 15:36 Ur Specific Emily 1.018 (1.001-1.035) 07/18/18 15:36 Urine Protein 1+ (Negative) H 07/18/18 15:36 Urine Glucose (UA) Negative (Negative) 07/18/18 15:36 Urine Ketones Negative (Negative) 07/18/18 15:36 Urine Blood Large (Negative) H 07/18/18 15:36 Urine Nitrite Negative (Negative) 07/18/18 15:36 Urine Bilirubin Negative (Negative) 07/18/18 15:36 Urine Urobilinogen <2.0 mg/dL (<2.0) 07/18/18 15:36 Ur Leukocyte Esterase Large (Negative) H 07/18/18 15:36 Urine RBC >182 /hpf (0-5) H 07/18/18 15:36 Urine WBC >182 /hpf (0-5) H 07/18/18 15:36 Urine WBC Clumps Many /hpf (None) H 07/18/18 15:36 Urine Bacteria Occasional /hpf (None) H 07/18/18 15:36 Urine Eosinophils 0 % 07/19/18 15:15 Ur Random Creatinine 30.7 mg/dL 07/21/18 11:49 U Random Total Protein 37 mg/dL (<12) H 07/21/18 11:49 Serum DON Interpret SEE NOTE 07/19/18 06:04 Urine Immunofixation SEE NOTE 07/19/18 15:15 c-ANCA <1:20 Titer (<1:20) 07/19/18 06:04 p-ANCA <1:20 Titer (<1:20) 07/19/18 06:04 Double Strand DNA Ab NEGATIVE (NEGATIVE) 07/19/18 06:04 Anti-DNA Ab Interp <1.0 IU/mL 07/19/18 06:04 Complement C3 105.0 mg/dL (80.0-207.0) 07/19/18 06:04 Complement C4 22.2 mg/dL (10.0-53.0) 07/19/18 06:04 Hep Bs Antigen Non-Reactive (Non-Reactive) 07/18/18 15:21 Hep Bs Antibody Non-Reactive (Non-Reactive) 07/18/18 15:21 Hep Bs Antibody, Quant 3.5 mIU/mL 07/18/18 15:21 Hep C IgG Ab Non-Reactive (Non-Reactive) 07/18/18 15:21 CBC & Chem 7: 07/22/18 05:42 07/22/18 05:42 Labs: Abnormal Lab Results - Last 24 Hours (Table) 07/20/18 07/21/18 07/21/18 Range/Units 09:34 11:36 11:49 WBC (3.8-10.6) k/uL RBC (4.30-5.90) m/uL Hgb (13.0-17.5) gm/dL Hct (39.0-53.0) % Neutrophils # (1.3-7.7) k/uL Lymphocytes # (1.0-4.8) k/uL Carbon Dioxide (22-30) mmol/L BUN (9-20) mg/dL Creatinine (0.66-1.25) mg/dL Glucose (74-99) mg/dL POC Glucose (mg/dL) 201 H (75-99) mg/dL Calcium (8.4-10.2) mg/dL Magnesium (1.6-2.3) mg/dL Iron 15 L (65-175) ug/dL TIBC 198 L (228-460) ug/dL Iron Saturation 7.58 L (15.00-50.00) U Random Total Protein 37 H (<12) mg/dL 07/21/18 07/21/18 07/22/18 Range/Units 16:29 20:36 05:42 WBC (3.8-10.6) k/uL RBC (4.30-5.90) m/uL Hgb (13.0-17.5) gm/dL Hct (39.0-53.0) % Neutrophils # (1.3-7.7) k/uL Lymphocytes # (1.0-4.8) k/uL Carbon Dioxide 21 L (22-30) mmol/L BUN 99 H (9-20) mg/dL Creatinine 4.25 H (0.66-1.25) mg/dL Glucose 138 H (74-99) mg/dL POC Glucose (mg/dL) 267 H 182 H (75-99) mg/dL Calcium 7.4 L (8.4-10.2) mg/dL Magnesium 2.4 H (1.6-2.3) mg/dL Iron (65-175) ug/dL TIBC (228-460) ug/dL Iron Saturation (15.00-50.00) U Random Total Protein (<12) mg/dL 07/22/18 07/22/18 Range/Units 05:42 06:00 WBC 20.4 H (3.8-10.6) k/uL RBC 3.25 L (4.30-5.90) m/uL Hgb 9.3 L (13.0-17.5) gm/dL Hct 30.0 L (39.0-53.0) % Neutrophils # 18.7 H (1.3-7.7) k/uL Lymphocytes # 0.7 L (1.0-4.8) k/uL Carbon Dioxide (22-30) mmol/L BUN (9-20) mg/dL Creatinine (0.66-1.25) mg/dL Glucose (74-99) mg/dL POC Glucose (mg/dL) 150 H (75-99) mg/dL Calcium (8.4-10.2) mg/dL Magnesium (1.6-2.3) mg/dL Iron (65-175) ug/dL TIBC (228-460) ug/dL Iron Saturation (15.00-50.00) U Random Total Protein (<12) mg/dL Microbiology - Last 24 Hours (Table) 07/18/18 15:36 Urine Culture - Final Urine,Voided Escherichia coli Assessment and Plan Plan: This is a 68-year-old male who presented to the hospital after having a collapse and found to be in acute kidney injury. Patient's urine culture came back positive for E. coli ESBL and he has been treated with Levaquin. This will be discontinued and Zosyn started. Continue supportive care. Further recommendat ions as patient progresses. The above dictated assessment and findings were discussed with Dr. Gold. The impression and plan of care have been directed as dictated. Shantell Lizama nurse practitioner acting as scribe for Dr. Gold.
--- NOTE | 2018-07-22 11:00 | P.PN ---
Subjective Patient is seen in follow-up for acute kidney injury. Renal function is stable with creatinine up to 4.25. He admits to good urine output. Still admits to dyspnea even with minimal exertion. Patient is noted to have ESBL E. coli UTI. He is maintained on Lasix 40 mg IV once daily. Ejection fraction 45-50%. Vital signs are stable. General: The patient appeared well nourished and normally developed. HEENT: Head exam is unremarkable. Neck is without jugular venous distension. LUNGS: Breath sounds decreased. HEART: Rate and Rhythm are regular. First and second heart sounds normal. No murmurs, rubs or gallops. ABDOMEN: Abdominal exam reveals normal bowel sounds. Non-tender and non- distended. No evidence of peritonitis. EXTREMITITES: No clubbing, cyanosis, or edema. Objective - Vital Signs Vital signs: Vital Signs Temp 98.5 F 07/22/18 08:00 Pulse 68 07/22/18 08:00 Resp 20 07/22/18 04:00 BP 108/48 07/22/18 08:00 Pulse Ox 97 07/22/18 08:00 Intake & Output 07/21/18 07/22/18 07/22/18 18:59 06:59 18:59 Intake Total 340 240 Output Total 250 550 Balance 90 -550 240 Weight 114 kg Intake: Intake, IV Titration 160 Amount Dextrose 5% in Water 1, 160 000 ml @ 20 mls/hr IV . Q24H ANTONIA with Sodium Bicarb (1 Meq/ml) 150 ml Rx#:[id number] Oral 180 240 Output: Urine 250 550 Other: Voiding Method Urinal Urinal # Voids 1 - Labs CBC & Chem 7: 07/22/18 05:42 07/22/18 05:42 Labs: Abnormal Lab Results - Last 24 Hours (Table) 07/20/18 07/21/18 07/21/18 Range/Units 09:34 11:36 11:49 WBC (3.8-10.6) k/uL RBC (4.30-5.90) m/uL Hgb (13.0-17.5) gm/dL Hct (39.0-53.0) % Neutrophils # (1.3-7.7) k/uL Lymphocytes # (1.0-4.8) k/uL Carbon Dioxide (22-30) mmol/L BUN (9-20) mg/dL Creatinine (0.66-1.25) mg/dL Glucose (74-99) mg/dL POC Glucose (mg/dL) 201 H (75-99) mg/dL Calcium (8.4-10.2) mg/dL Magnesium (1.6-2.3) mg/dL Iron 15 L (65-175) ug/dL TIBC 198 L (228-460) ug/dL Iron Saturation 7.58 L (15.00-50.00) U Random Total Protein 37 H (<12) mg/dL 07/21/18 07/21/18 07/22/18 Range/Units 16:29 20:36 05:42 WBC (3.8-10.6) k/uL RBC (4.30-5.90) m/uL Hgb (13.0-17.5) gm/dL Hct (39.0-53.0) % Neutrophils # (1.3-7.7) k/uL Lymphocytes # (1.0-4.8) k/uL Carbon Dioxide 21 L (22-30) mmol/L BUN 99 H (9-20) mg/dL Creatinine 4.25 H (0.66-1.25) mg/dL Glucose 138 H (74-99) mg/dL POC Glucose (mg/dL) 267 H 182 H (75-99) mg/dL Calcium 7.4 L (8.4-10.2) mg/dL Magnesium 2.4 H (1.6-2.3) mg/dL Iron (65-175) ug/dL TIBC (228-460) ug/dL Iron Saturation (15.00-50.00) U Random Total Protein (<12) mg/dL 07/22/18 07/22/18 Range/Units 05:42 06:00 WBC 20.4 H (3.8-10.6) k/uL RBC 3.25 L (4.30-5.90) m/uL Hgb 9.3 L (13.0-17.5) gm/dL Hct 30.0 L (39.0-53.0) % Neutrophils # 18.7 H (1.3-7.7) k/uL Lymphocytes # 0.7 L (1.0-4.8) k/uL Carbon Dioxide (22-30) mmol/L BUN (9-20) mg/dL Creatinine (0.66-1.25) mg/dL Glucose (74-99) mg/dL POC Glucose (mg/dL) 150 H (75-99) mg/dL Calcium (8.4-10.2) mg/dL Magnesium (1.6-2.3) mg/dL Iron (65-175) ug/dL TIBC (228-460) ug/dL Iron Saturation (15.00-50.00) U Random Total Protein (<12) mg/dL Microbiology - Last 24 Hours (Table) 07/18/18 15:36 Urine Culture - Final Urine,Voided Escherichia coli Assessment and Plan Plan: Assessment: 1. Acute kidney injury secondary to ATN secondary to infection. Also component of cardiorenal syndrome. Creatinine up to 4.25 today. Creatinine in December 2017 was 1.0. No hydronephrosis noted on renal ultrasound. Serologic workup has been negative so far. 2. ESBL E. coli urinary tract infection maintained on IV antibiotics. 3. Systolic CHF with ejection fraction of 45-50%. 4. Insulin-dependent diabetes mellitus. 5. Metabolic acidosis secondary to acute kidney injury maintained on oral sodium bicarbonate. Better. 6. Iron deficiency anemia. Plan: Maintain Lasix 40 mg IV daily. Check chest x-ray. Avoid nephrotoxins. Hold off on IV iron due to infection. Schedule for kidney biopsy. I will give him IV DDAVP one hour prior to kidney biopsy. Check postvoid residual.
[2018-07-22 11:03] LABS: Glucose,Whole Blood 249 mg/dL (75-99)
--- NOTE | 2018-07-22 11:39 | P.PN ---
Subjective Progress Note Date: 07/22/18 This is a 68-year-old gentleman with history of diabetes, hypertension, hyperlipidemia, coronary artery disease with prior bypass surgery, who had apparently not been eating or drinking much at home and had not taken his medications for at least one week duration. He had a syncopal episode while he was in the shower, was initially seen at [facility] and then transferred here because of acute kidney injury and a nephrology consultation had been requested. Cardiology was asked to evaluate the patient yesterday because of hypotension. Blood pressure this morning 108/48 with a heart rate in the 60s, 97% on 3 L of oxygen. White blood cell count up to 20.4 this morning, hemoglobin 9.3, platelet count 281. Sodium 138, potassium 3.7, BUN 99 and creatinine 4.2. Iron level XV, TIBC 198, total bilirubin 7.5. VQ scan at been performed which was negative for pulmonary embolism. Objective - Vital Signs Vital signs: Vital Signs Temp 98.5 F 07/22/18 08:00 Pulse 68 07/22/18 08:00 Resp 20 07/22/18 08:00 BP 108/48 07/22/18 08:00 Pulse Ox 97 07/22/18 08:00 Intake & Output 07/21/18 07/22/18 07/22/18 18:59 06:59 18:59 Intake Total 340 240 Output Total 250 550 Balance 90 -550 240 Weight 114 kg Intake: Intake, IV Titration 160 Amount Dextrose 5% in Water 1, 160 000 ml @ 20 mls/hr IV . Q24H ANTONIA with Sodium Bicarb (1 Meq/ml) 150 ml Rx#:[id number] Oral 180 240 Output: Urine 250 550 Other: Voiding Method Urinal Urinal Urinal # Voids 1 - Exam PHYSICAL EXAMINATION: GENERAL: 68-year-old gentleman in no acute distress at the time of my examination HEENT: Head is atraumatic, normocephalic. Pupils equal, round. Sclera anicteric. Conjunctiva are clear. Mucous membranes of the mouth are moist. Neck is supple. There is no elevated jugular venous pressure. No carotid bruit is heard. HEART EXAMINATION: Heart S1 S2 1 systolic murmur is heard CHEST EXAMINATION: Lungs are clear to auscultation and precussion. No chest wall tenderness is noted on palpation or with deep breathing. ABDOMEN: Soft, nontender. Bowel sounds are heard. No organomegaly noted. EXTREMITIES: 2+ peripheral pulses with evidence of peripheral edema and no calf tenderness noted. NEUROLOGIC patient is awake, alert and oriented X3. . - Labs CBC & Chem 7: 07/22/18 05:42 07/22/18 05:42 Labs: Abnormal Lab Results - Last 24 Hours (Table) 07/21/18 07/21/18 07/21/18 Range/Units 11:36 11:49 16:29 WBC (3.8-10.6) k/uL RBC (4.30-5.90) m/uL Hgb (13.0-17.5) gm/dL Hct (39.0-53.0) % Neutrophils # (1.3-7.7) k/uL Lymphocytes # (1.0-4.8) k/uL Carbon Dioxide (22-30) mmol/L BUN (9-20) mg/dL Creatinine (0.66-1.25) mg/dL Glucose (74-99) mg/dL POC Glucose (mg/dL) 201 H 267 H (75-99) mg/dL Calcium (8.4-10.2) mg/dL Magnesium (1.6-2.3) mg/dL U Random Total Protein 37 H (<12) mg/dL 07/21/18 07/22/18 07/22/18 Range/Units 20:36 05:42 05:42 WBC 20.4 H (3.8-10.6) k/uL RBC 3.25 L (4.30-5.90) m/uL Hgb 9.3 L (13.0-17.5) gm/dL Hct 30.0 L (39.0-53.0) % Neutrophils # 18.7 H (1.3-7.7) k/uL Lymphocytes # 0.7 L (1.0-4.8) k/uL Carbon Dioxide 21 L (22-30) mmol/L BUN 99 H (9-20) mg/dL Creatinine 4.25 H (0.66-1.25) mg/dL Glucose 138 H (74-99) mg/dL POC Glucose (mg/dL) 182 H (75-99) mg/dL Calcium 7.4 L (8.4-10.2) mg/dL Magnesium 2.4 H (1.6-2.3) mg/dL U Random Total Protein (<12) mg/dL 07/22/18 07/22/18 Range/Units 06:00 11:01 WBC (3.8-10.6) k/uL RBC (4.30-5.90) m/uL Hgb (13.0-17.5) gm/dL Hct (39.0-53.0) % Neutrophils # (1.3-7.7) k/uL Lymphocytes # (1.0-4.8) k/uL Carbon Dioxide (22-30) mmol/L BUN (9-20) mg/dL Creatinine (0.66-1.25) mg/dL Glucose (74-99) mg/dL POC Glucose (mg/dL) 150 H 249 H (75-99) mg/dL Calcium (8.4-10.2) mg/dL Magnesium (1.6-2.3) mg/dL U Random Total Protein (<12) mg/dL Microbiology - Last 24 Hours (Table) 07/18/18 15:36 Urine Culture - Final Urine,Voided Escherichia coli Assessment and Plan Plan: Assessment: 1. Acute kidney injury secondary to ATN secondary to infection. Also component of cardiorenal syndrome. 2. ESBL E. coli urinary tract infection. 3. Systolic CHF with ejection fraction of 45-50%. 4. Insulin-dependent diabetes mellitus. 5. Metabolic acidosis secondary to acute kidney injury maintained on oral sodium bicarbonate. 6. Iron deficiency anemia. 7. hypotension Plan At this point in time we will recommend to continue the patient on his current medications. As the blood pressure improves, we will resume the beta ghislaine down the road, continue to hold RUY inhibitor secondary to the renal function. We will follow this patient now along with you on an as-needed basis only, please don't hesitate to call with any questions. DNP note has been reviewed, I agree with a documented findings and plan of care. Patient was seen and examined.
--- NOTE | 2018-07-22 12:18 | XR ---
EXAMINATION TYPE: XR chest 1V DATE OF EXAM: 07/22/2018 COMPARISON: 07/20/2018 HISTORY: Shortness of breath TECHNIQUE: Single frontal view of the chest is obtained. FINDINGS: Heart is enlarged and there is a diffuse interstitial pattern. Postsurgical changes are no maine. No pleural effusion or pneumothorax. Arthropathy of the shoulders. Hyperinflation suggests COPD. Basilar atelectasis favored over infiltrate. IMPRESSION: Cardiomegaly correlate for mild central venous congestion.
[2018-07-22] MEDS: PIPERACILLIN-TAZOBACTAM 3.375 GM in SODIUM CHLORIDE 0.9% 100 ML IVPB SCH ×2 (12:23→21:30)
--- NOTE | 2018-07-22 13:46 | PN ---
PROGRESS NOTE DATE OF SERVICE: 07/22/2018 CHIEF COMPLAINT: Congestive heart failure with renal failure. HISTORY OF PRESENT ILLNESS: This gentleman is clinically about the same. He has been identified as having urinary tract infection and he will be referred to Infectious Disease. He is also being followed by Med Renal and his renal function has improved slightly. He remains a little bit lethargic. PHYSICAL EXAMINATION: Vital signs are normal. Chest demonstrates scattered rales and some wheezing bilaterally. Cardiac exam reveals a faint grade 1/6 systolic murmur with an irregularly irregular pulse. Abdomen is protuberant and soft. IMPRESSION: 1. Congestive heart failure. 2. Renal failure. 3. Urinary tract infection. 4. Cardiac murmur. PLAN: Continue to provide supportive care. At the present time he is very weak and considering his cardiac and renal issues, his prognosis is poor. MMZANEL / LIYAHN: [id number] /
[2018-07-22 16:04] LABS: Glucose,Whole Blood 183 mg/dL (75-99)
[2018-07-22 20:47] LABS: Glucose,Whole Blood 208 mg/dL (75-99)
--- NOTE | 2018-07-22 21:03 | P.CON ---
Consult Note - . Consult date: 07/22/18 Assessment/Plan:: This is a 68-year-old male. Patient gives history that he was not eating or drinking very much at home and forgot to take his medications for 1 week. He collapsed while in the shower and was initially seen at [facility] and then transferred to [facility] for acute kidney injury and nephrology consultation. Patient has been followed by Dr. Tobias for acute kidney injury. His initial creatinine at [facility] was 4.7 and today he is at 4.25 with the BUN of 99. White count is 20.4 and hemoglobin 9.3. Renal ultrasound shows no renal mass or obstruction. There is moderate splenomegaly. Chest x-ray shows evidence of congestive heart failure that is new. Pulmonary perfusion imaging was negative for PE. Patient is followed by cardiology for systolic heart failure as well. Please see the consult note as dictated by nurse practitioner Mrs. Shantell Lizama. Has noted this 68-year-old male has multiple medical troubles including history of coronary artery bypass grafting, compartment syndrome to his left leg and a history of urinary symptoms. The patient relates that he gets up approximately every hour while he is sleeping. He denies dysuria but has had urinary infections. None is evidence of the ESBL E. coli urinary tract infection. Antimicrobial therapy adjusted to Zosyn for now. Patient is complaining of some cough will offer some Robitussin try to improve this. However could easily be a cardiac cough given his significant history of heart failure. Patient relates that he has not an oxygen therapy at home. Is being monitored as noted for his acute renal failure. Ultrasound without mass or obstruction but will ask a bladder scan to ensure that there is not some chronic retention occurring. There are no oral options available and will likely need to set up an outpatient course of antibiotic therapy likely at his local hospital of [place] after his discharge. I agree with evaluation, assessment and plan as dictated by nurse practitioner Mrs. Shantell Lizama.
[2018-07-22] MEDS ORDERED: guaiFENesin-DM 100-10MG/5ML 10 ML CUP PO PRN (21:04)
[2018-07-22] MEDS: INSULIN DETEMIR (LEVEMIR) 100 UNIT/ML SYR SQ SCH (21:29)
[2018-07-23] MEDS: DEXTROSE 5% IN WATER 1,000 ML with SODIUM BICARB (1 MEQ/ML) 150 ML IV SCH (05:18)
[2018-07-23 06:11] LABS: Glucose,Whole Blood 89 mg/dL (75-99)
[2018-07-23] MEDS: INSULIN ASPART (NovoLOG) 100 UNIT/ML VIAL SQ SCH ×7 (06:16→20:43)
[2018-07-23] MEDS: CARVEDILOL 12.5 MG TAB PO SCH ×2 (06:45→17:31)
[2018-07-23 07:16] LABS: Calcium 7.5 mg/dL (8.4-10.2); Potassium 3.5 mmol/L (3.5-5.1)
[2018-07-23] MEDS: FUROSEMIDE 10 MG/ML 4 ML VIAL IV SCH (08:14)
[2018-07-23] MEDS: FAMOTIDINE 20 MG TAB PO SCH (08:14)
[2018-07-23] MEDS: SODIUM BICARBONATE TAB 650 MG TAB PO SCH ×2 (08:14→20:42)
[2018-07-23] MEDS: EZETIMIBE 10 MG TAB PO SCH (08:14)
[2018-07-23] MEDS: PIPERACILLIN-TAZOBACTAM 3.375 GM in SODIUM CHLORIDE 0.9% 100 ML IVPB SCH ×2 (08:15→20:44)
[2018-07-23] MEDS ORDERED: ASPIRIN 81 MG PO SCH (09:00)
--- NOTE | 2018-07-23 11:16 | P.PN ---
Subjective Patient is seen in follow-up for acute kidney injury. Renal function worsening. Creatinine 4.33 today. He admits to good urine output. Still admits to dyspnea even with minimal exertion. Patient is noted to have ESBL E. coli UTI. He is maintained on Lasix 40 mg IV once daily. Ejection fraction 45-50%. Vital signs are stable. General: The patient appeared well nourished and normally developed. HEENT: Head exam is unremarkable. Neck is without jugular venous distension. LUNGS: Breath sounds decreased. HEART: Rate and Rhythm are regular. First and second heart sounds normal. No murmurs, rubs or gallops. ABDOMEN: Abdominal exam reveals normal bowel sounds. Non-tender and non- distended. No evidence of peritonitis. EXTREMITITES: No clubbing, cyanosis, or edema. Objective - Vital Signs Vital signs: Vital Signs Temp 98.1 F 07/23/18 07:57 Pulse 72 07/23/18 07:57 Resp 18 07/23/18 08:00 BP 121/59 07/23/18 07:57 Pulse Ox 99 07/23/18 07:57 Intake & Output 07/22/18 07/23/18 07/23/18 18:59 06:59 18:59 Intake Total 622 50 Output Total 350 500 Balance 272 -500 50 Weight 112.2 kg Intake: Intake, IV Titration 160 Amount Dextrose 5% in Water 1, 160 000 ml @ 20 mls/hr IV . Q24H ANTONIA with Sodium Bicarb (1 Meq/ml) 150 ml Rx#:[id number] Oral 462 50 Output: Urine 350 500 Other: Voiding Method Urinal Urinal Urinal - Labs CBC & Chem 7: 07/22/18 05:42 07/23/18 06:35 Labs: Abnormal Lab Results - Last 24 Hours (Table) 07/22/18 07/22/18 07/23/18 Range/Units 16:02 20:46 06:35 Chloride 108 H (98-107) mmol/L BUN 96 H (9-20) mg/dL Creatinine 4.33 H (0.66-1.25) mg/dL POC Glucose (mg/dL) 183 H 208 H (75-99) mg/dL Calcium 7.5 L (8.4-10.2) mg/dL Assessment and Plan Plan: Assessment: 1. Acute kidney injury secondary to ATN secondary to infection. Also component of cardiorenal syndrome. Creatinine up to 4.33 today. Creatinine in December 2017 was 1.0. No hydronephrosis noted on renal ultrasound. Serologic workup has been negative so far. Urine eosinophils negative. 2. ESBL E. coli urinary tract infection maintained on IV antibiotics. 3. Systolic CHF with ejection fraction of 45-50%. 4. Insulin-dependent diabetes mellitus. 5. Metabolic acidosis secondary to acute kidney injury maintained on oral sodium bicarbonate. Better. 6. Iron deficiency anemia. Plan: Maintain Lasix 40 mg IV daily. Avoid nephrotoxins. Hold off on IV iron due to infection. Kidney biopsy scheduled for next week on Friday. Aspirin and Plavix a currently held. I will give him IV DDAVP one hour prior to kidney biopsy. Monitor postvoid residuals. No urgent need for renal replacement therapy at this time.
[2018-07-23 11:53] LABS: Glucose,Whole Blood 143 mg/dL (75-99)
[2018-07-23 17:03] LABS: Glucose,Whole Blood 188 mg/dL (75-99)
--- NOTE | 2018-07-23 18:11 | PN ---
PROGRESS NOTE CHIEF COMPLAINT: Congestive heart failure and renal failure. HISTORY OF PRESENT ILLNESS: This gentleman continues to struggle. He is not doing well. Renal function is still severely impaired. Laboratory studies reveal BUN 96 and creatinine of 4.33 which is fairly stable. Calcium 7.5. PHYSICAL EXAM: He is awake and arousable, but is a little bit lethargic. Color is normal. Chest demonstrates scattered rales throughout. Cardiac exam demonstrates an S4. The abdomen is very protuberant. Neurologically seems to be intact. IMPRESSION: 1. Congestive heart failure, diastolic. 2. Chronic renal failure. 3. Hypocalcemia. PLAN: Continue efforts to re-establish improved cardiac function and renal function. Prognosis is poor. MMODL / IJN: [id number] /
[2018-07-23 20:31] LABS: Glucose,Whole Blood 189 mg/dL (75-99)
[2018-07-23] MEDS: INSULIN DETEMIR (LEVEMIR) 100 UNIT/ML SYR SQ SCH (20:44)
--- NOTE | 2018-07-23 22:53 | P.PN ---
Subjective Progress Note Date: 07/23/18 This is a 68-year-old male. Patient gives history that he was not eating or drinking very much at home and forgot to take his medications for 1 week. He collapsed while in the shower and was initially seen at [facility] and then transferred to [facility] for acute kidney injury and nephrology consultation. Patient has been followed by Dr. Tobias for acute kidney injury. His initial creatinine at [facility] was 4.7 and today he is at 4.25 with the BUN of 99. White count is 20.4 and hemoglobin 9.3. Renal ultrasound shows no renal mass or obstruction. There is moderate splenomegaly. Chest x-ray shows evidence of congestive heart failure that is new. Pulmonary perfusion imaging was negative for PE. Patient is followed by cardiology for systolic heart failure as well. 07/23/2018 patient continues to feel poorly but has no new acute changes. Objective - Vital Signs Vital signs: Vital Signs Temp 98.5 F 07/23/18 20:00 Pulse 66 07/23/18 20:10 Resp 17 07/23/18 20:10 BP 99/53 07/23/18 20:00 Pulse Ox 99 07/23/18 12:00 Intake & Output 07/23/18 07/23/18 07/24/18 06:59 18:59 06:59 Intake Total 580 Output Total 500 2000 400 Balance -500 -1420 -400 Weight 112.2 kg Intake: Oral 580 Output: Urine 500 1600 400 Uretheral (Love) 400 Post Void Residual 400 Other: Voiding Method Urinal Indwelling Catheter Indwelling Catheter # Voids 1 - Exam Patient still feels poorly. Relates that he continues to urinate approximately every hour while he is supine in bed HEENT: Anicteric conjunctiva are pink and moist nasal mucosa grossly intact without significant lesions, there is no thrush. Neck: The neck is supple without significant lymphadenopathy or thyromegaly. Lungs: Good bilateral air entry without significant crackles or wheezing. There is no significant bronchial sounds. There is no egophony or dullness. Heart: Regular rate and rhythm with an audible S1-S2, no S3 no S4. There is no significant murmur click or rub, PMI was nondisplaced. Abdomen: Obese, lower extremities with generalized edema no open ulcers Positive bowel sounds soft and nontender without palpable masses or organomegaly. There was no guarding or rebound. Extremities: The upper extremities have excellent pulses they are symmetric, no significant petechiae or telangiectasia. No splinter hemorrhages were noted. The lower extremities are free from significant edema. The peripheral pulses were 2+ and symmetric. Neuro: Awake alert oriented to person place and time. There are no acute new gross focal sensory motor deficits. - Labs CBC & Chem 7: 07/22/18 05:42 07/23/18 06:35 Labs: Abnormal Lab Results - Last 24 Hours (Table) 07/23/18 07/23/18 07/23/18 Range/Units 06:35 11:43 17:00 Chloride 108 H (98-107) mmol/L BUN 96 H (9-20) mg/dL Creatinine 4.33 H (0.66-1.25) mg/dL POC Glucose (mg/dL) 143 H 188 H (75-99) mg/dL Calcium 7.5 L (8.4-10.2) mg/dL 07/23/18 Range/Units 20:29 Chloride (98-107) mmol/L BUN (9-20) mg/dL Creatinine (0.66-1.25) mg/dL POC Glucose (mg/dL) 189 H (75-99) mg/dL Calcium (8.4-10.2) mg/dL Microbiology - Last 24 Hours (Table) 07/22/18 09:12 Blood Culture - Preliminary Blood No Growth after 24 hours Laboratory Results WBC 20.4 k/uL (3.8-10.6) H 07/22/18 05:42 RBC 3.25 m/uL (4.30-5.90) L 07/22/18 05:42 Hgb 9.3 gm/dL (13.0-17.5) L 07/22/18 05:42 Hct 30.0 % (39.0-53.0) L 07/22/18 05:42 MCV 92.2 fL (80.0-100.0) 07/22/18 05:42 MCH 28.5 pg (25.0-35.0) 07/22/18 05:42 MCHC 31.0 g/dL (31.0-37.0) 07/22/18 05:42 RDW 14.8 % (11.5-15.5) 07/22/18 05:42 Plt Count 281 k/uL (150-450) 07/22/18 05:42 Neutrophils % 92 % 07/22/18 05:42 Lymphocytes % 3 % 07/22/18 05:42 Monocytes % 2 % 07/22/18 05:42 Eosinophils % 1 % 07/22/18 05:42 Basophils % 0 % 07/22/18 05:42 Neutrophils # 18.7 k/uL (1.3-7.7) H 07/22/18 05:42 Lymphocytes # 0.7 k/uL (1.0-4.8) L 07/22/18 05:42 Monocytes # 0.5 k/uL (0-1.0) 07/22/18 05:42 Eosinophils # 0.2 k/uL (0-0.7) 07/22/18 05:42 Basophils # 0.0 k/uL (0-0.2) 07/22/18 05:42 Hypochromasia Slight 07/22/18 05:42 D-Dimer 4.45 mg/L FEU (<0.60) H 07/18/18 17:46 Sodium 140 mmol/L (137-145) 07/23/18 06:35 Potassium 3.5 mmol/L (3.5-5.1) 07/23/18 06:35 Chloride 108 mmol/L (98-107) H 07/23/18 06:35 Carbon Dioxide 22 mmol/L (22-30) 07/23/18 06:35 Anion Gap 10 mmol/L 07/23/18 06:35 BUN 96 mg/dL (9-20) H 07/23/18 06:35 Creatinine 4.33 mg/dL (0.66-1.25) H 07/23/18 06:35 Est GFR (CKD-EPI)AfAm 15 (>60 ml/min/1.73 sqM) 07/23/18 06:35 Est GFR (CKD-EPI)NonAf 13 (>60 ml/min/1.73 sqM) 07/23/18 06:35 Glucose 77 mg/dL (74-99) 07/23/18 06:35 POC Glucose (mg/dL) 189 mg/dL (75-99) H 07/23/18 20:29 POC Glu Managed Care Manager ID Liz Rg 07/23/18 20:29 Calcium 7.5 mg/dL (8.4-10.2) L 07/23/18 06:35 Phosphorus 4.4 mg/dL (2.5-4.5) 07/16/18 16:18 Magnesium 2.4 mg/dL (1.6-2.3) H 07/22/18 05:42 Iron 15 ug/dL (65-175) L 07/20/18 09:34 TIBC 198 ug/dL (228-460) L 07/20/18 09:34 Iron Saturation 7.58 (15.00-50.00) L 07/20/18 09:34 Total Bilirubin 1.3 mg/dL (0.2-1.3) 07/18/18 15:21 AST 74 U/L (17-59) H 07/18/18 15:21 ALT 62 U/L (21-72) 07/18/18 15:21 Alkaline Phosphatase 163 U/L (38-126) H 07/18/18 15:21 Total Protein 5.4 g/dL (6.3-8.2) L 07/18/18 15:21 Albumin 2.6 g/dL (3.5-5.0) L 07/18/18 15:21 Urine Color Light Red 07/18/18 15:36 Urine Appearance Turbid (Clear) 07/18/18 15:36 Urine pH 5.5 (5.0-8.0) 07/18/18 15:36 Ur Specific [place] 1.018 (1.001-1.035) 07/18/18 15:36 Urine Protein 1+ (Negative) H 07/18/18 15:36 Urine Glucose (UA) Negative (Negative) 07/18/18 15:36 Urine Ketones Negative (Negative) 07/18/18 15:36 Urine Blood Large (Negative) H 07/18/18 15:36 Urine Nitrite Negative (Negative) 07/18/18 15:36 Urine Bilirubin Negative (Negative) 07/18/18 15:36 Urine Urobilinogen <2.0 mg/dL (<2.0) 07/18/18 15:36 Ur Leukocyte Esterase Large (Negative) H 07/18/18 15:36 Urine RBC >182 /hpf (0-5) H 07/18/18 15:36 Urine WBC >182 /hpf (0-5) H 07/18/18 15:36 Urine WBC Clumps Many /hpf (None) H 07/18/18 15:36 Urine Bacteria Occasional /hpf (None) H 07/18/18 15:36 Urine Eosinophils 0 % 07/19/18 15:15 Ur Random Creatinine 30.7 mg/dL 07/21/18 11:49 U Random Total Protein 37 mg/dL (<12) H 07/21/18 11:49 Serum DON Interpret SEE NOTE 07/19/18 06:04 Urine Immunofixation SEE NOTE 07/19/18 15:15 c-ANCA <1:20 Titer (<1:20) 07/19/18 06:04 p-ANCA <1:20 Titer (<1:20) 07/19/18 06:04 Double Strand DNA Ab NEGATIVE (NEGATIVE) 07/19/18 06:04 Anti-DNA Ab Interp <1.0 IU/mL 07/19/18 06:04 Complement C3 105.0 mg/dL (80.0-207.0) 07/19/18 06:04 Complement C4 22.2 mg/dL (10.0-53.0) 07/19/18 06:04 Hep Bs Antigen Non-Reactive (Non-Reactive) 07/18/18 15:21 Hep Bs Antibody Non-Reactive (Non-Reactive) 07/18/18 15:21 Hep Bs Antibody, Quant 3.5 mIU/mL 07/18/18 15:21 Hep C IgG Ab Non-Reactive (Non-Reactive) 07/18/18 15:21 Microbiology 07/22/18 09:12 Blood Blood Culture - Preliminary No Growth after 24 hours 07/18/18 15:36 Urine,Voided Urine Culture - Final Escherichia coli Assessment and Plan (1) Infection due to ESBL-producing Escherichia coli Narrative/Plan: 68-year-old male has multiple medical troubles including history of coronary artery bypass grafting, compartment syndrome to his left leg and a history of urinary symptoms. The patient relates that he gets up approximately every hour while he is sleeping. He denies dysuria but has had urinary infections. None is evidence of the ESBL E. coli urinary tract infection. Antimicrobial therapy adjusted to Zosyn for now. Patient is complaining of some cough will offer some Robitussin try to improve this. However could easily be a cardiac cough given his significant history of heart failure. Patient relates that he has not an oxygen therapy at home. Is being monitored as noted for his acute renal failure. Ultrasound without mass or obstruction but will ask a bladder scan to ensure that there is not some chronic retention occurring. There are no oral options available and will likely need to set up an outpatient course of antibiotic therapy likely at his local hospital of [place] after his discharge. 07/23/2018 patient feeling slightly better. With assistance to get to the restroom and is having difficulty with some loose stool but not kylee diarrhea. Requesting a bladder scan to ensure that the patient is emptying well. This discussed the nursing staff. Patient will need IV access so that he will build received outpatient antibiotic therapy at the time of his discharge. We'll likely changed Invanz for once a day treatment at his local hospital. Patient however is still quite short of breath is being treated for his heart failure. As in the nursing staff to inquire with the family if he is at his baseline functional status. Seems to be quite debilitated. Current Visit: Yes Status: Acute Code(s): A49.8 - OTHER BACTERIAL INFECTIONS OF UNSPECIFIED SITE; Z16.12 - EXTENDED SPECTRUM BETA LACTAMASE (ESBL) RESISTANCE SNOMED Code(s): 987542955
[2018-07-24] MEDS: DEXTROSE 5% IN WATER 1,000 ML with SODIUM BICARB (1 MEQ/ML) 150 ML IV SCH (04:28)
[2018-07-24 06:08] LABS: Glucose,Whole Blood 133 mg/dL (75-99)
[2018-07-24] MEDS: CARVEDILOL 12.5 MG TAB PO SCH ×2 (06:43→17:09)
[2018-07-24] MEDS: INSULIN ASPART (NovoLOG) 100 UNIT/ML VIAL SQ SCH ×7 (06:52→20:44)
[2018-07-24 07:47] LABS: Calcium 7.4 mg/dL (8.4-10.2); Magnesium 2.5 mg/dL (1.6-2.3); Phosphorus 5.7 mg/dL (2.5-4.5); Potassium 3.7 mmol/L (3.5-5.1)
--- NOTE | 2018-07-24 08:25 | CDI ---
Documentation Clarification Form Date: 07/24/2018 8:04:32 AM From: Vicki PIETER Viveros, CCDS Admit Date: 07/16/2018 4:12:00 PM Patient Name: Ritchie Salas Visit Number: [id number] Discharge Date: ATTENTION: The Clinical Documentation Specialists (CDI) and [facility] Coding Staff appreciate your assistance in clarifying documentation. Please respond to the clarification below the line at the bottom and electronically sign. The CDI & [facility] Coding staff will review the response and follow-up if needed. Please note: Queries are made part of the Legal Health Record. If you have any questions, please contact the author of this message via ITS. Dr. Edward Moreira: Congestive heart failure is documented in the initial discharge summary of 07/19 (patient is not discharged yet) and also in subsequent progress notes as diastolic. Per the PN by I.D.: "Patient is followed by cardiology for systolic heart failure as well." Per the PN by electrical engineer mep: "Acute kidney injury secondary to ATN secondary to infection. Also component of cardiorenal syndrome." AND "Systolic CHF with ejection fraction of 45-50%." History: No previous history of renal failure. Hypertension, DM II, OA, Hyperlipidemia & GERD. Clinical Indicators: Presented with weakness & SOB, diagnosed with acute renal failure secondary to hypotension & NSAIDs and UTI. VS: BP 103/52 - 85/55* Echocardiogram Results 07/20: EF 45-50%, left ventricular systolic function mildly impaired. Mild TR, mild pulmonary hypertension. CXR 07/17: no heart failure. CXR 07/18: evidence of congestive heart failure, new. CXR 07/22: Cardiomegaly, correlate for mild central venous congestion. Treatment: IV fluid 125, IV fluid bolus, po Levaquin, IV Dextrose/Water w/NaBicarb, Insulin sq, IV Lasix started 07/18, continued through 07/21. IV Zosyn. In your professional opinion, can you please clarify the acuity and type of CHF if known? Systolic Heart Failure: o Acute o Chronic o Acute on Chronic Diastolic Heart Failure: o Acute o Chronic o Acute on Chronic Systolic & Diastolic Heart Failure: o Acute o Chronic o Acute on Chronic Heart Failure Unable to Determine Other, please specify (Last Revision: July 2017) SARAH
[2018-07-24] MEDS: PIPERACILLIN-TAZOBACTAM 3.375 GM in SODIUM CHLORIDE 0.9% 100 ML IVPB SCH ×2 (09:07→20:23)
[2018-07-24] MEDS: SODIUM BICARBONATE TAB 650 MG TAB PO SCH ×2 (09:07→20:23)
[2018-07-24] MEDS: FUROSEMIDE 10 MG/ML 4 ML VIAL IV SCH (09:07)
[2018-07-24] MEDS: EZETIMIBE 10 MG TAB PO SCH (09:07)
[2018-07-24] MEDS: FAMOTIDINE 20 MG TAB PO SCH (09:07)
--- NOTE | 2018-07-24 11:30 | P.PN ---
Subjective Progress Note Date: 07/24/18 This is a 68-year-old gentleman with history of diabetes, hypertension, hyperlipidemia, coronary artery disease with prior bypass surgery, who had apparently not been eating or drinking much at home and had not taken his medications for at least one week duration. He had a syncopal episode while he was in the shower, was initially seen at [facility] and then transferred here because of acute kidney injury and a nephrology consultation had been requested. Cardiology was asked to evaluate the patient yesterday because of hypotension. Blood pressure this morning 108/48 with a heart rate in the 60s, 97% on 3 L of oxygen. White blood cell count up to 20.4 this morning, hemoglobin 9.3, platelet count 281. Sodium 138, potassium 3.7, BUN 99 and creatinine 4.2. Iron level XV, TIBC 198, total bilirubin 7.5. VQ scan at been performed which was negative for pulmonary embolism. 07/24/2018 Patient was seen and examined this morning, continues to feel weak overall. Blood pressure 106/50 with a heart rate in the 60s, 98% on 3 L of oxygen. Sodium 143 potassium 3.7, BUN 95 and creatinine 4.2. Magnesium 2.5. Patient continues to be on 40 mg of IV Lasix daily. Weight is down 2 kg today. Objective - Vital Signs Vital signs: Vital Signs Temp 98.8 F 07/24/18 08:05 Pulse 63 07/24/18 08:05 Resp 20 07/24/18 08:05 BP 106/50 07/24/18 08:05 Pulse Ox 98 07/24/18 08:05 Intake & Output 07/23/18 07/24/18 07/24/18 18:59 06:59 18:59 Intake Total 580 240 Output Total 1999 1150 Balance -1420 -1150 240 Weight 110.2 kg Intake: Oral 580 240 Output: Urine 1600 1150 Uretheral (Love) 400 Post Void Residual 400 Other: Voiding Method Indwelling Catheter Indwelling Catheter # Voids 1 - Exam PHYSICAL EXAMINATION: GENERAL: 68-year-old gentleman in no acute distress at the time of my examination HEENT: Head is atraumatic, normocephalic. Pupils equal, round. Sclera anicteric. Conjunctiva are clear. Mucous membranes of the mouth are moist. Neck is supple. There is no elevated jugular venous pressure. No carotid bruit is heard. HEART EXAMINATION: Heart S1 S2 1 systolic murmur is heard CHEST EXAMINATION: Lungs are clear to auscultation and precussion. No chest wall tenderness is noted on palpation or with deep breathing. ABDOMEN: Soft, nontender. Bowel sounds are heard. No organomegaly noted. EXTREMITIES: 2+ peripheral pulses with evidence of peripheral edema and no calf tenderness noted. NEUROLOGIC patient is awake, alert and oriented X3. . - Labs CBC & Chem 7: 07/22/18 05:42 07/24/18 06:32 Labs: Abnormal Lab Results - Last 24 Hours (Table) 07/23/18 07/23/18 07/23/18 Range/Units 11:43 17:00 20:29 Chloride (98-107) mmol/L BUN (9-20) mg/dL Creatinine (0.66-1.25) mg/dL Glucose (74-99) mg/dL POC Glucose (mg/dL) 143 H 188 H 189 H (75-99) mg/dL Calcium (8.4-10.2) mg/dL Phosphorus (2.5-4.5) mg/dL Magnesium (1.6-2.3) mg/dL 07/24/18 07/24/18 Range/Units 06:06 06:32 Chloride 109 H (98-107) mmol/L BUN 95 H (9-20) mg/dL Creatinine 4.27 H (0.66-1.25) mg/dL Glucose 127 H (74-99) mg/dL POC Glucose (mg/dL) 133 H (75-99) mg/dL Calcium 7.4 L (8.4-10.2) mg/dL Phosphorus 5.7 H (2.5-4.5) mg/dL Magnesium 2.5 H (1.6-2.3) mg/dL Microbiology - Last 24 Hours (Table) 07/22/18 09:12 Blood Culture - Preliminary Blood No Growth after 24 hours Assessment and Plan Plan: Assessment: 1. Acute kidney injury secondary to ATN secondary to infection. Also component of cardiorenal syndrome. 2. ESBL E. coli urinary tract infection. 3. Systolic CHF with ejection fraction of 45-50%. 4. Insulin-dependent diabetes mellitus. 5. Metabolic acidosis secondary to acute kidney injury maintained on oral sodium bicarbonate. 6. Iron deficiency anemia. 7. hypotension Plan At this point in time we will recommend to continue the patient on his current medications. As the blood pressure improves, we will resume the beta ghislaine down the road, continue to hold RUY inhibitor secondary to the renal function. Arrangements are being made for possible ECF placement. We will follow this patient now along with you on an as-needed basis only, please don't hesitate to call with any questions. DNP note has been reviewed, I agree with a documented findings and plan of care. Patient was seen and examined.
[2018-07-24 11:31] LABS: Glucose,Whole Blood 134 mg/dL (75-99)
--- NOTE | 2018-07-24 14:50 | P.PN ---
Subjective Patient is seen in follow-up for acute kidney injury. Renal function was worsening over the last few days but is stable today. Creatinine 4.7 today. He was noted to have urinary retention with bladder scan showing over 800 mL of urine and now has a Love catheter in place. Urine output is documented as 3.1 L in the last 24 hours. Patient is noted to have ESBL E. coli UTI. He is maintained on Lasix 40 mg IV once daily. Ejection fraction 45-50%. Dyspnea improved. Vital signs are stable. General: The patient appeared well nourished and normally developed. HEENT: Head exam is unremarkable. Neck is without jugular venous distension. LUNGS: Breath sounds decreased. HEART: Rate and Rhythm are regular. First and second heart sounds normal. No murmurs, rubs or gallops. ABDOMEN: Abdominal exam reveals normal bowel sounds. Non-tender and non- distended. No evidence of peritonitis. EXTREMITITES: No clubbing, cyanosis, or edema. Objective - Vital Signs Vital signs: Vital Signs Temp 98.0 F 07/24/18 11:50 Pulse 63 07/24/18 11:50 Resp 22 07/24/18 11:50 BP 115/56 07/24/18 11:50 Pulse Ox 99 07/24/18 11:50 Intake & Output 07/23/18 07/24/18 07/24/18 18:59 06:59 18:59 Intake Total 580 462 Output Total 2000 1150 1000 Balance -1420 -1150 -538 Weight 110.2 kg 110.2 kg Intake: Oral 580 462 Output: Urine 1600 1150 1000 Uretheral (Love) 400 Post Void Residual 400 Other: Voiding Method Indwelling Catheter Indwelling Catheter # Voids 1 - Labs CBC & Chem 7: 07/22/18 05:42 07/24/18 06:32 Labs: Abnormal Lab Results - Last 24 Hours (Table) 07/23/18 07/23/18 07/24/18 Range/Units 17:00 20:29 06:06 Chloride (98-107) mmol/L BUN (9-20) mg/dL Creatinine (0.66-1.25) mg/dL Glucose (74-99) mg/dL POC Glucose (mg/dL) 188 H 189 H 133 H (75-99) mg/dL Calcium (8.4-10.2) mg/dL Phosphorus (2.5-4.5) mg/dL Magnesium (1.6-2.3) mg/dL 07/24/18 07/24/18 Range/Units 06:32 11:14 Chloride 109 H (98-107) mmol/L BUN 95 H (9-20) mg/dL Creatinine 4.27 H (0.66-1.25) mg/dL Glucose 127 H (74-99) mg/dL POC Glucose (mg/dL) 134 H (75-99) mg/dL Calcium 7.4 L (8.4-10.2) mg/dL Phosphorus 5.7 H (2.5-4.5) mg/dL Magnesium 2.5 H (1.6-2.3) mg/dL Microbiology - Last 24 Hours (Table) 07/22/18 09:12 Blood Culture - Preliminary Blood No Growth after 48 hours Assessment and Plan Plan: Assessment: 1. Acute kidney injury secondary to ATN secondary to infection and urinary retention. Also component of cardiorenal syndrome. Creatinine peaked at 4.23 on July 23 and is 4.27 today. Creatinine in December 2017 was 1.0. No hydronephrosis noted on renal ultrasound. Serologic workup has been negative so far. Urine eosinophils negative. 2. ESBL E. coli urinary tract infection maintained on IV antibiotics. 3. Systolic CHF with ejection fraction of 45-50%. 4. Insulin-dependent diabetes mellitus. 5. Metabolic acidosis secondary to acute kidney injury maintained on oral sodium bicarbonate. Better. 6. Iron deficiency anemia. 7. Hyperphosphatemia secondary to acute kidney injury. Plan: Maintain Lasix 40 mg IV daily. Avoid nephrotoxins. Hold off on IV iron due to infection. Kidney biopsy scheduled for next week on Friday. Aspirin and Plavix are currently held. I will give him IV DDAVP one hour prior to kidney biopsy. Maintain Love catheter. Add PhosLo with meals. No urgent need for renal replacement therapy at this time.
[2018-07-24 16:38] LABS: Glucose,Whole Blood 94 mg/dL (75-99)
[2018-07-24] MEDS: CALCIUM ACETATE 667 MG CAP PO SCH (17:10)
[2018-07-24 20:36] LABS: Glucose,Whole Blood 156 mg/dL (75-99)
[2018-07-24] MEDS: Exenatide Microspheres [Bydureon Pen] 2 MG SQ SCH (20:43)
[2018-07-24] MEDS: INSULIN DETEMIR (LEVEMIR) 100 UNIT/ML SYR SQ SCH (20:44)
--- NOTE | 2018-07-24 20:56 | P.PN ---
Subjective Progress Note Date: 07/24/18 This is a 68-year-old male. Patient gives history that he was not eating or drinking very much at home and forgot to take his medications for 1 week. He collapsed while in the shower and was initially seen at [facility] and then transferred to [facility] for acute kidney injury and nephrology consultation. Patient has been followed by Dr. Tobias for acute kidney injury. His initial creatinine at [facility] was 4.7 and today he is at 4.25 with the BUN of 99. White count is 20.4 and hemoglobin 9.3. Renal ultrasound shows no renal mass or obstruction. There is moderate splenomegaly. Chest x-ray shows evidence of congestive heart failure that is new. Pulmonary perfusion imaging was negative for PE. Patient is followed by cardiology for systolic heart failure as well. 07/23/2018 patient continues to feel poorly but has no new acute changes. 07/24/2018 patient still feels poorly but without acute change. Being followed by nephrology for his renal failure. Congestive heart failure is improved he is less short of breath. Objective - Vital Signs Vital signs: Vital Signs Temp 98.2 F 07/24/18 15:25 Pulse 57 L 07/24/18 15:25 Resp 20 07/24/18 15:25 BP 130/60 07/24/18 15:25 Pulse Ox 94 L 07/24/18 19:46 Intake & Output 07/24/18 07/24/18 07/25/18 06:59 18:59 06:59 Intake Total 684 Output Total 1150 1600 1600 Balance -1150 -916 -1600 Weight 110.2 kg 110.2 kg Intake: Oral 684 Output: Urine 1150 1600 1600 Other: Voiding Method Indwelling Catheter # Voids 1 - Exam Patient still feels poorly. Relates that he continues to urinate approximately every hour while he is supine in bed HEENT: Anicteric conjunctiva are pink and moist nasal mucosa grossly intact without significant lesions, there is no thrush. Neck: The neck is supple without significant lymphadenopathy or thyromegaly. Lungs: Good bilateral air entry without significant crackles or wheezing. There is no significant bronchial sounds. There is no egophony or dullness. Heart: Regular rate and rhythm with an audible S1-S2, no S3 no S4. There is no significant murmur click or rub, PMI was nondisplaced. Abdomen: Obese, lower extremities with generalized edema no open ulcers Positive bowel sounds soft and nontender without palpable masses or organomegaly. There was no guarding or rebound. Extremities: The upper extremities have excellent pulses they are symmetric, no significant petechiae or telangiectasia. No splinter hemorrhages were noted. The lower extremities are free from significant edema. The peripheral pulses were 2+ and symmetric. Neuro: Awake alert oriented to person place and time. There are no acute new gross focal sensory motor deficits. - Labs CBC & Chem 7: 07/22/18 05:42 07/24/18 06:32 Labs: Abnormal Lab Results - Last 24 Hours (Table) 07/24/18 07/24/18 07/24/18 Range/Units 06:06 06:32 11:14 Chloride 109 H (98-107) mmol/L BUN 95 H (9-20) mg/dL Creatinine 4.27 H (0.66-1.25) mg/dL Glucose 127 H (74-99) mg/dL POC Glucose (mg/dL) 133 H 134 H (75-99) mg/dL Calcium 7.4 L (8.4-10.2) mg/dL Phosphorus 5.7 H (2.5-4.5) mg/dL Magnesium 2.5 H (1.6-2.3) mg/dL 07/24/18 Range/Units 20:34 Chloride (98-107) mmol/L BUN (9-20) mg/dL Creatinine (0.66-1.25) mg/dL Glucose (74-99) mg/dL POC Glucose (mg/dL) 156 H (75-99) mg/dL Calcium (8.4-10.2) mg/dL Phosphorus (2.5-4.5) mg/dL Magnesium (1.6-2.3) mg/dL Microbiology - Last 24 Hours (Table) 07/22/18 09:12 Blood Culture - Preliminary Blood No Growth after 48 hours Laboratory Results WBC 20.4 k/uL (3.8-10.6) H 07/22/18 05:42 RBC 3.25 m/uL (4.30-5.90) L 07/22/18 05:42 Hgb 9.3 gm/dL (13.0-17.5) L 07/22/18 05:42 Hct 30.0 % (39.0-53.0) L 07/22/18 05:42 MCV 92.2 fL (80.0-100.0) 07/22/18 05:42 MCH 28.5 pg (25.0-35.0) 07/22/18 05:42 MCHC 31.0 g/dL (31.0-37.0) 07/22/18 05:42 RDW 14.8 % (11.5-15.5) 07/22/18 05:42 Plt Count 281 k/uL (150-450) 07/22/18 05:42 Neutrophils % 92 % 07/22/18 05:42 Lymphocytes % 3 % 07/22/18 05:42 Monocytes % 2 % 07/22/18 05:42 Eosinophils % 1 % 07/22/18 05:42 Basophils % 0 % 07/22/18 05:42 Neutrophils # 18.7 k/uL (1.3-7.7) H 07/22/18 05:42 Lymphocytes # 0.7 k/uL (1.0-4.8) L 07/22/18 05:42 Monocytes # 0.5 k/uL (0-1.0) 07/22/18 05:42 Eosinophils # 0.2 k/uL (0-0.7) 07/22/18 05:42 Basophils # 0.0 k/uL (0-0.2) 07/22/18 05:42 Hypochromasia Slight 07/22/18 05:42 D-Dimer 4.45 mg/L FEU (<0.60) H 07/18/18 17:46 Sodium 143 mmol/L (137-145) 07/24/18 06:32 Potassium 3.7 mmol/L (3.5-5.1) 07/24/18 06:32 Chloride 109 mmol/L (98-107) H 07/24/18 06:32 Carbon Dioxide 26 mmol/L (22-30) 07/24/18 06:32 Anion Gap 8 mmol/L 07/24/18 06:32 BUN 95 mg/dL (9-20) H 07/24/18 06:32 Creatinine 4.27 mg/dL (0.66-1.25) H 07/24/18 06:32 Est GFR (CKD-EPI)AfAm 16 (>60 ml/min/1.73 sqM) 07/24/18 06:32 Est GFR (CKD-EPI)NonAf 14 (>60 ml/min/1.73 sqM) 07/24/18 06:32 Glucose 127 mg/dL (74-99) H 07/24/18 06:32 POC Glucose (mg/dL) 156 mg/dL (75-99) H 07/24/18 20:34 POC Glu [employer] Fouzia Guardado 07/24/18 20:34 Calcium 7.4 mg/dL (8.4-10.2) L 07/24/18 06:32 Phosphorus 5.7 mg/dL (2.5-4.5) H 07/24/18 06:32 Magnesium 2.5 mg/dL (1.6-2.3) H 07/24/18 06:32 Iron 15 ug/dL (65-175) L 07/20/18 09:34 TIBC 198 ug/dL (228-460) L 07/20/18 09:34 Iron Saturation 7.58 (15.00-50.00) L 07/20/18 09:34 Total Bilirubin 1.3 mg/dL (0.2-1.3) 07/18/18 15:21 AST 74 U/L (17-59) H 07/18/18 15:21 ALT 62 U/L (21-72) 07/18/18 15:21 Alkaline Phosphatase 163 U/L (38-126) H 07/18/18 15:21 Total Protein 5.4 g/dL (6.3-8.2) L 07/18/18 15:21 Albumin 2.6 g/dL (3.5-5.0) L 07/18/18 15:21 Urine Color Light Red 07/18/18 15:36 Urine Appearance Turbid (Clear) 07/18/18 15:36 Urine pH 5.5 (5.0-8.0) 07/18/18 15:36 Ur Specific [place] 1.018 (1.001-1.035) 07/18/18 15:36 Urine Protein 1+ (Negative) H 07/18/18 15:36 Urine Glucose (UA) Negative (Negative) 07/18/18 15:36 Urine Ketones Negative (Negative) 07/18/18 15:36 Urine Blood Large (Negative) H 07/18/18 15:36 Urine Nitrite Negative (Negative) 07/18/18 15:36 Urine Bilirubin Negative (Negative) 07/18/18 15:36 Urine Urobilinogen <2.0 mg/dL (<2.0) 07/18/18 15:36 Ur Leukocyte Esterase Large (Negative) H 07/18/18 15:36 Urine RBC >182 /hpf (0-5) H 07/18/18 15:36 Urine WBC >182 /hpf (0-5) H 07/18/18 15:36 Urine WBC Clumps Many /hpf (None) H 07/18/18 15:36 Urine Bacteria Occasional /hpf (None) H 07/18/18 15:36 Urine Eosinophils 0 % 07/19/18 15:15 Ur Random Creatinine 30.7 mg/dL 07/21/18 11:49 U Random Total Protein 37 mg/dL (<12) H 07/21/18 11:49 Serum DON Interpret SEE NOTE 07/19/18 06:04 Urine Immunofixation SEE NOTE 07/19/18 15:15 c-ANCA <1:20 Titer (<1:20) 07/19/18 06:04 p-ANCA <1:20 Titer (<1:20) 07/19/18 06:04 Double Strand DNA Ab NEGATIVE (NEGATIVE) 07/19/18 06:04 Anti-DNA Ab Interp <1.0 IU/mL 07/19/18 06:04 Complement C3 105.0 mg/dL (80.0-207.0) 07/19/18 06:04 Complement C4 22.2 mg/dL (10.0-53.0) 07/19/18 06:04 Hep Bs Antigen Non-Reactive (Non-Reactive) 07/18/18 15:21 Hep Bs Antibody Non-Reactive (Non-Reactive) 07/18/18 15:21 Hep Bs Antibody, Quant 3.5 mIU/mL 07/18/18 15:21 Hep C IgG Ab Non-Reactive (Non-Reactive) 07/18/18 15:21 Microbiology 07/22/18 09:12 Blood Blood Culture - Preliminary No Growth after 48 hours 07/18/18 15:36 Urine,Voided Urine Culture - Final Escherichia coli Assessment and Plan (1) Infection due to ESBL-producing Escherichia coli Narrative/Plan: 68-year-old male has multiple medical troubles including history of coronary artery bypass grafting, compartment syndrome to his left leg and a history of urinary symptoms. The patient relates that he gets up approximately every hour while he is sleeping. He denies dysuria but has had urinary infections. None is evidence of the ESBL E. coli urinary tract infection. Antimicrobial therapy adjusted to Zosyn for now. Patient is complaining of some cough will offer some Robitussin try to improve this. However could easily be a cardiac cough given his significant history of heart failure. Patient relates that he has not an oxygen therapy at home. Is being monitored as noted for his acute renal failure. Ultrasound without mass or obstruction but will ask a bladder scan to ensure that there is not some chronic retention occurring. There are no oral options available and will likely need to set up an outpatient course of antibiotic therapy likely at his local hospital of [place] after his discharge. 07/23/2018 patient feeling slightly better. With assistance to get to the restroom and is having difficulty with some loose stool but not kylee diarrhea. Requesting a bladder scan to ensure that the patient is emptying well. This discussed the nursing staff. Patient will need IV access so that he will build received outpatient antibiotic therapy at the time of his discharge. We'll likely changed Invanz for once a day treatment at his local hospital. Patient however is still quite short of breath is being treated for his heart failure. As in the nursing staff to inquire with the family if he is at his baseline functional status. Seems to be quite debilitated. 07/24/2018 patient seems to be less short of breath today. Still quite debilitated. There is notation of him potentially going to rehab after discharge. Currently receiving Zosyn for the ESBL UTI. Does seem to be tolerating this well continue for now and monitor. As noted the patient had evidence of large post void residual and Love catheters iwas placed he's being followed by nephrology and renal biopsies requested given his acute renal failure of undetermined etiology. Current Visit: Yes Status: Acute Code(s): A49.8 - OTHER BACTERIAL INFECTIONS OF UNSPECIFIED SITE; Z16.12 - EXTENDED SPECTRUM BETA LACTAMASE (ESBL) RESISTANCE SNOMED Code(s): 406330669
[2018-07-25] MEDS: DEXTROSE 5% IN WATER 1,000 ML with SODIUM BICARB (1 MEQ/ML) 150 ML IV SCH (01:38)
[2018-07-25] MEDS: INSULIN ASPART (NovoLOG) 100 UNIT/ML VIAL SQ SCH ×8 (06:32→21:41)
[2018-07-25 06:33] LABS: Glucose,Whole Blood 97 mg/dL (75-99)
[2018-07-25] MEDS: CARVEDILOL 12.5 MG TAB PO SCH ×2 (06:35→16:48)
[2018-07-25] MEDS: CALCIUM ACETATE 667 MG CAP PO SCH ×3 (06:35→16:48)
[2018-07-25 07:16] LABS: Calcium 7.6 mg/dL (8.4-10.2); Magnesium 2.3 mg/dL (1.6-2.3); Potassium 3.4 mmol/L (3.5-5.1)
[2018-07-25] MEDS: SODIUM BICARBONATE TAB 650 MG TAB PO SCH ×2 (09:24→21:55)
[2018-07-25] MEDS: FUROSEMIDE 10 MG/ML 4 ML VIAL IV SCH (09:24)
[2018-07-25] MEDS: PIPERACILLIN-TAZOBACTAM 3.375 GM in SODIUM CHLORIDE 0.9% 100 ML IVPB SCH ×2 (09:24→21:56)
[2018-07-25] MEDS: FAMOTIDINE 20 MG TAB PO SCH (09:24)
[2018-07-25] MEDS: EZETIMIBE 10 MG TAB PO SCH (09:25)
[2018-07-25 11:36] LABS: Glucose,Whole Blood 93 mg/dL (75-99)
--- NOTE | 2018-07-25 11:51 | P.PN ---
Subjective Progress Note Date: 07/25/18 Principal diagnosis: Patient is seen in follow-up for acute kidney injury, secondary to hypotension and nonsteroidals as well as urinary tract infection and additionally has had b ladder retention. Renal function was worsening over the last few days but is stable, Creatinine 4.7. He was noted to have urinary retention with bladder scan showing over 800 mL of urine and now has a Love catheter in place. Patient is noted to have ESBL E. coli UTI. He is maintained on Lasix 40 mg IV once daily. Ejection fraction 45-50%. Dyspnea improved. Additionally he is on IV D5W with sodium bicarb as well as oral bicarb He is feeling much better this morning. Has a good appetite no shortness of breath. Objective - Vital Signs Vital signs: Vital Signs Temp 98.8 F 07/25/18 08:00 Pulse 68 07/25/18 08:00 Resp 18 07/25/18 08:00 BP 127/64 07/25/18 08:00 Pulse Ox 95 07/25/18 08:00 Intake & Output 07/24/18 07/25/18 07/25/18 18:59 06:59 18:59 Intake Total 684 240 222 Output Total 1600 2600 1000 Balance -916 -2360 -778 Weight 110.2 kg 109.5 kg Intake: Oral 684 240 222 Output: Urine 1600 2600 1000 Other: Voiding Method Indwelling Catheter Indwelling Catheter On examination is awake alert oriented comfortable HEENT exam no JVP neck is supple no facial asymmetry Lungs are clear to auscultation good air entry bilaterally Heart sounds are unremarkable no murmur rub gallop Abdomen is soft nontender Extremity exam reveals no edema Neurologically awake alert oriented but generalized weakness needed to be held sit up. - Labs CBC & Chem 7: 07/22/18 05:42 07/25/18 06:23 Labs: Abnormal Lab Results - Last 24 Hours (Table) 07/24/18 07/25/18 Range/Units 20:34 06:23 Potassium 3.4 L (3.5-5.1) mmol/L BUN 83 H (9-20) mg/dL Creatinine 3.64 H (0.66-1.25) mg/dL POC Glucose (mg/dL) 156 H (75-99) mg/dL Calcium 7.6 L (8.4-10.2) mg/dL Microbiology - Last 24 Hours (Table) 07/22/18 09:12 Blood Culture - Preliminary Blood No Growth after 72 hours Assessment and Plan Assessment: Impression 1 acute kidney injury secondary to urinary retention and prerenal state. Improving with Love catheter as well as IV Lasix. 2. Possible kidney biopsy. Ultrasound shows 11.7 cm and 11.5 cm right and left kidney. Urine protein to creatinine ratio is 1 g range 2. E. coli urinary tract infection. 3. Urinary retention requiring Love catheter neck cyst. 4. Insulin-dependent diabetes mellitus. 5. Metabolic acidosis on IV and by mouth bicarb 6. Iron deficiency anemia Recommendation 1. Discontinue IV bicarb. 2. Maintain Lasix for right now 3. Kidney biopsy scheduled, off of aspirin and Plavix. 4. Continue Love catheter 5. Monitor labs
--- NOTE | 2018-07-25 13:52 | MISC ---
MISCELLANOUS REPORT QUERY Say, acute on chronic for his heart failure. MMODL / IJN: [id number] /
[2018-07-25] MEDS: ACETAMINOPHEN TAB 325 MG TAB PO PRN (14:20)
--- NOTE | 2018-07-25 14:46 | PN ---
PROGRESS NOTE CHIEF COMPLAINT: Hypotension, congestive heart failure and renal failure. HISTORY OF PRESENT ILLNESS: This gentleman is just about the same. He is improving very slowly. His BUN and creatinine have dropped slightly. He is still weak and dyspneic. PHYSICAL EXAM: He still has scattered rales and rhonchi throughout. Cardiac exam is normal. Abdomen is protuberant. Extremities are the same. IMPRESSION: 1. Congestive heart failure. 2. Renal failure. PLAN: Continue current management as his renal function is slowly improving. MMODL / IJN: [id number] /
--- NOTE | 2018-07-25 15:05 | P.PN ---
Subjective Progress Note Date: 07/25/18 This is a 68-year-old male. Patient gives history that he was not eating or drinking very much at home and forgot to take his medications for 1 week. He collapsed while in the shower and was initially seen at [facility] and then transferred to [facility] for acute kidney injury and nephrology consultation. Patient has been followed by Dr. Tobias for acute kidney injury. His initial creatinine at [facility] was 4.7 and today he is at 4.25 with the BUN of 99. White count is 20.4 and hemoglobin 9.3. Renal ultrasound shows no renal mass or obstruction. There is moderate splenomegaly. Chest x-ray shows evidence of congestive heart failure that is new. Pulmonary perfusion imaging was negative for PE. Patient is followed by cardiology for systolic heart failure as well. 07/23/2018 patient continues to feel poorly but has no new acute changes. 07/24/2018 patient still feels poorly but without acute change. Being followed by nephrology for his renal failure. Congestive heart failure is improved he is less short of breath. 07/25/2018 patient is more awake today and speech is clearer. Still with discomfort but is denying other acute new complaints at this point in time. No fevers or chills. Objective - Vital Signs Vital signs: Vital Signs Temp 98.9 F 07/25/18 12:00 Pulse 63 07/25/18 12:00 Resp 18 07/25/18 12:00 BP 146/69 07/25/18 12:00 Pulse Ox 93 L 07/25/18 12:00 Intake & Output 07/24/18 07/25/18 07/25/18 18:59 06:59 18:59 Intake Total 684 240 444 Output Total 1600 2600 1000 Balance -916 -2360 -556 Weight 110.2 kg 109.5 kg Intake: Oral 684 240 444 Output: Urine 1600 2600 1000 Other: Voiding Method Indwelling Catheter Indwelling Catheter - Exam Patient still feels poorly. Relates that he continues to urinate approximately every hour while he is supine in bed HEENT: Anicteric conjunctiva are pink and moist nasal mucosa grossly intact without significant lesions, there is no thrush. Neck: The neck is supple without significant lymphadenopathy or thyromegaly. Lungs: Good bilateral air entry without significant crackles or wheezing. There is no significant bronchial sounds. There is no egophony or dullness. Heart: Regular rate and rhythm with an audible S1-S2, no S3 no S4. There is no significant murmur click or rub, PMI was nondisplaced. Abdomen: Obese, lower extremities with generalized edema no open ulcers Positive bowel sounds soft and nontender without palpable masses or organomegaly. There was no guarding or rebound. Extremities: The upper extremities have excellent pulses they are symmetric, no significant petechiae or telangiectasia. No splinter hemorrhages were noted. The lower extremities are free from significant edema. The peripheral pulses were 2+ and symmetric. Neuro: Awake alert oriented to person place and time. There are no acute new gross focal sensory motor deficits. - Labs CBC & Chem 7: 07/22/18 05:42 07/25/18 06:23 Labs: Abnormal Lab Results - Last 24 Hours (Table) 07/24/18 07/25/18 Range/Units 20:34 06:23 Potassium 3.4 L (3.5-5.1) mmol/L BUN 83 H (9-20) mg/dL Creatinine 3.64 H (0.66-1.25) mg/dL POC Glucose (mg/dL) 156 H (75-99) mg/dL Calcium 7.6 L (8.4-10.2) mg/dL Microbiology - Last 24 Hours (Table) 07/22/18 09:12 Blood Culture - Preliminary Blood No Growth after 72 hours Laboratory Results WBC 20.4 k/uL (3.8-10.6) H 07/22/18 05:42 RBC 3.25 m/uL (4.30-5.90) L 07/22/18 05:42 Hgb 9.3 gm/dL (13.0-17.5) L 07/22/18 05:42 Hct 30.0 % (39.0-53.0) L 07/22/18 05:42 MCV 92.2 fL (80.0-100.0) 07/22/18 05:42 MCH 28.5 pg (25.0-35.0) 07/22/18 05:42 MCHC 31.0 g/dL (31.0-37.0) 07/22/18 05:42 RDW 14.8 % (11.5-15.5) 07/22/18 05:42 Plt Count 281 k/uL (150-450) 07/22/18 05:42 Neutrophils % 92 % 07/22/18 05:42 Lymphocytes % 3 % 07/22/18 05:42 Monocytes % 2 % 07/22/18 05:42 Eosinophils % 1 % 07/22/18 05:42 Basophils % 0 % 07/22/18 05:42 Neutrophils # 18.7 k/uL (1.3-7.7) H 07/22/18 05:42 Lymphocytes # 0.7 k/uL (1.0-4.8) L 07/22/18 05:42 Monocytes # 0.5 k/uL (0-1.0) 07/22/18 05:42 Eosinophils # 0.2 k/uL (0-0.7) 07/22/18 05:42 Basophils # 0.0 k/uL (0-0.2) 07/22/18 05:42 Hypochromasia Slight 07/22/18 05:42 D-Dimer 4.45 mg/L FEU (<0.60) H 07/18/18 17:46 Sodium 141 mmol/L (137-145) 07/25/18 06:23 Potassium 3.4 mmol/L (3.5-5.1) L 07/25/18 06:23 Chloride 107 mmol/L (98-107) 07/25/18 06:23 Carbon Dioxide 27 mmol/L (22-30) 07/25/18 06:23 Anion Gap 7 mmol/L 07/25/18 06:23 BUN 83 mg/dL (9-20) H 07/25/18 06:23 Creatinine 3.64 mg/dL (0.66-1.25) H 07/25/18 06:23 Est GFR (CKD-EPI)AfAm 19 (>60 ml/min/1.73 sqM) 07/25/18 06:23 Est GFR (CKD-EPI)NonAf 16 (>60 ml/min/1.73 sqM) 07/25/18 06:23 Glucose 91 mg/dL (74-99) 07/25/18 06:23 POC Glucose (mg/dL) 93 mg/dL (75-99) 07/25/18 11:33 POC Glu [employer] ID Yuliana Barksdale 07/25/18 11:33 Calcium 7.6 mg/dL (8.4-10.2) L 07/25/18 06:23 Phosphorus 5.7 mg/dL (2.5-4.5) H 07/24/18 06:32 Magnesium 2.3 mg/dL (1.6-2.3) 07/25/18 06:23 Iron 15 ug/dL (65-175) L 07/20/18 09:34 TIBC 198 ug/dL (228-460) L 07/20/18 09:34 Iron Saturation 7.58 (15.00-50.00) L 07/20/18 09:34 Total Bilirubin 1.3 mg/dL (0.2-1.3) 07/18/18 15:21 AST 74 U/L (17-59) H 07/18/18 15:21 ALT 62 U/L (21-72) 07/18/18 15:21 Alkaline Phosphatase 163 U/L (38-126) H 07/18/18 15:21 Total Protein 5.4 g/dL (6.3-8.2) L 07/18/18 15:21 Albumin 2.6 g/dL (3.5-5.0) L 07/18/18 15:21 Urine Color Light Red 07/18/18 15:36 Urine Appearance Turbid (Clear) 07/18/18 15:36 Urine pH 5.5 (5.0-8.0) 07/18/18 15:36 Ur Specific [place] 1.018 (1.001-1.035) 07/18/18 15:36 Urine Protein 1+ (Negative) H 07/18/18 15:36 Urine Glucose (UA) Negative (Negative) 07/18/18 15:36 Urine Ketones Negative (Negative) 07/18/18 15:36 Urine Blood Large (Negative) H 07/18/18 15:36 Urine Nitrite Negative (Negative) 07/18/18 15:36 Urine Bilirubin Negative (Negative) 07/18/18 15:36 Urine Urobilinogen <2.0 mg/dL (<2.0) 07/18/18 15:36 Ur Leukocyte Esterase Large (Negative) H 07/18/18 15:36 Urine RBC >182 /hpf (0-5) H 07/18/18 15:36 Urine WBC >182 /hpf (0-5) H 07/18/18 15:36 Urine WBC Clumps Many /hpf (None) H 07/18/18 15:36 Urine Bacteria Occasional /hpf (None) H 07/18/18 15:36 Urine Eosinophils 0 % 07/19/18 15:15 Ur Random Creatinine 30.7 mg/dL 07/21/18 11:49 U Random Total Protein 37 mg/dL (<12) H 07/21/18 11:49 Serum DON Interpret SEE NOTE 07/19/18 06:04 Urine Immunofixation SEE NOTE 07/19/18 15:15 c-ANCA <1:20 Titer (<1:20) 07/19/18 06:04 p-ANCA <1:20 Titer (<1:20) 07/19/18 06:04 Double Strand DNA Ab NEGATIVE (NEGATIVE) 07/19/18 06:04 Anti-DNA Ab Interp <1.0 IU/mL 07/19/18 06:04 Complement C3 105.0 mg/dL (80.0-207.0) 07/19/18 06:04 Complement C4 22.2 mg/dL (10.0-53.0) 07/19/18 06:04 Hep Bs Antigen Non-Reactive (Non-Reactive) 07/18/18 15:21 Hep Bs Antibody Non-Reactive (Non-Reactive) 07/18/18 15:21 Hep Bs Antibody, Quant 3.5 mIU/mL 07/18/18 15:21 Hep C IgG Ab Non-Reactive (Non-Reactive) 07/18/18 15:21 Microbiology 07/22/18 09:12 Blood Blood Culture - Preliminary No Growth after 72 hours 07/18/18 15:36 Urine,Voided Urine Culture - Final Escherichia coli Assessment and Plan (1) Infection due to ESBL-producing Escherichia coli Narrative/Plan: 68-year-old male has multiple medical troubles including history of coronary artery bypass grafting, compartment syndrome to his left leg and a history of urinary symptoms. The patient relates that he gets up approximately every hour while he is sleeping. He denies dysuria but has had urinary infections. None is evidence of the ESBL E. coli urinary tract infection. Antimicrobial therapy adjusted to Zosyn for now. Patient is complaining of some cough will offer some Robitussin try to improve this. However could easily be a cardiac cough given his significant history of heart failure. Patient relates that he has not an oxygen therapy at home. Is being monitored as noted for his acute renal failure. Ultrasound without mass or obstruction but will ask a bladder scan to ensure that there is not some chronic retention occurring. There are no oral options available and will likely need to set up an outpatient course of antibiotic therapy likely at his local hospital of [place] after his discharge. 07/23/2018 patient feeling slightly better. With assistance to get to the restroom and is having difficulty with some loose stool but not kylee diarrhea. Requesting a bladder scan to ensure that the patient is emptying well. This discussed the nursing staff. Patient will need IV access so that he will build received outpatient antibiotic therapy at the time of his discharge. We'll likely changed Invanz for once a day treatment at his local hospital. Patient however is still quite short of breath is being treated for his heart failure. As in the nursing staff to inquire with the family if he is at his baseline functional status. Seems to be quite debilitated. 07/24/2018 patient seems to be less short of breath today. Still quite debilitated. There is notation of him potentially going to rehab after discharge. Currently receiving Zosyn for the ESBL UTI. Does seem to be tolerating this well continue for now and monitor. As noted the patient had evidence of large post void residual and Love catheters iwas placed he's being followed by nephrology and renal biopsies requested given his acute renal failure of undetermined etiology. 07/25/2018 the patient is feeling slightly better today. His sedimentation has improved somewhat in his speech is now more understandable. He is continuing to receive antibiotic therapy for increased ESBL E. coli urinary tract infection. He is being followed by nephrology for his acute renal failure of undetermined etiology. Renal biopsy is being scheduled for early next week after his anticoagulants have been held and risk of bleeding has been modulated. Current Visit: Yes Status: Acute Code(s): A49.8 - OTHER BACTERIAL INFECTIONS OF UNSPECIFIED SITE; Z16.12 - EXTENDED SPECTRUM BETA LACTAMASE (ESBL) RESISTANCE SNOMED Code(s): 095496388
[2018-07-25 16:46] LABS: Glucose,Whole Blood 207 mg/dL (75-99)
[2018-07-25] MEDS: LIDOCAINE 2% GEL 30 ML TUBE TOPICAL PRN (17:25)
[2018-07-25 21:07] LABS: Glucose,Whole Blood 145 mg/dL (75-99)
[2018-07-25] MEDS: INSULIN DETEMIR (LEVEMIR) 100 UNIT/ML SYR SQ SCH (21:49)
[2018-07-26] MEDS: CALCIUM ACETATE 667 MG CAP PO SCH ×3 (06:00→17:35)
[2018-07-26 06:48] LABS: Glucose,Whole Blood 33 mg/dL (75-99)
[2018-07-26 06:49] LABS: Basophils % (A) 0 %; Eosinophils # (A) 0.1 k/uL (0-0.7); Eosinophils % (A) 1 %; HCT 33.6 % (39.0-53.0); HGB 10.5 gm/dL (13.0-17.5); Lymphocytes # (A) 0.6 k/uL (1.0-4.8); Lymphocytes % (A) 5 %; MCH 28.1 pg (25.0-35.0); MCHC 31.2 g/dL (31.0-37.0); MCV 90.1 fL (80.0-100.0); Mean Platelet Volume 7.7; Monocytes # (A) 0.4 k/uL (0-1.0); Monocytes % (A) 3 %; Neutrophils % (A) 90 %; Platelet Count 452 k/uL (150-450); RBC 3.73 m/uL (4.30-5.90); RDW 14.4 % (11.5-15.5); WBC 12.3 k/uL (3.8-10.6)
[2018-07-26 06:50] LABS: Calcium 8.3 mg/dL (8.4-10.2); Potassium 3.2 mmol/L (3.5-5.1)
[2018-07-26 06:51] LABS: Glucose,Whole Blood 133 mg/dL (75-99)
[2018-07-26 07:58] LABS: Glucose,Whole Blood 120 mg/dL (75-99)
[2018-07-26] MEDS: INSULIN ASPART (NovoLOG) 100 UNIT/ML VIAL SQ SCH ×7 (09:17→21:41)
[2018-07-26] MEDS: PIPERACILLIN-TAZOBACTAM 3.375 GM in SODIUM CHLORIDE 0.9% 100 ML IVPB SCH ×2 (09:23→21:36)
[2018-07-26] MEDS: FUROSEMIDE 10 MG/ML 4 ML VIAL IV SCH (09:23)
--- NOTE | 2018-07-26 10:31 | P.PN ---
Subjective Progress Note Date: 07/26/18 Principal diagnosis: Patient is seen in follow-up for acute kidney injury, secondary to hypotension and nonsteroidals as well as urinary tract infection and additionally has had b ladder retention. Renal function was worsening over the last few days but is stable, Creatinine 4.7> 3.1 today. He was noted to have urinary retention with bladder scan showing over 800 mL of urine and now has a Love catheter in place. Patient is noted to have ESBL E. coli UTI. He is maintained on Lasix 40 mg IV once daily. Ejection fraction 45-50%. Dyspnea improved. His IV bicarbonate was discontinued yesterday 07/25/2018, and continued as before on oral bicarb His schedule for kidney biopsy, it was rescheduled because of aspirin and Plavix which has been discontinued. His workup shows a proteinuria of 1 g range, normal serum and urine immunofixation c-ANCA p-ANCA negative double-stranded DNA and YUE negative complement C3 and C4 normal He is feeling much better this morning. Has a good appetite no shortness of breath. Objective - Vital Signs Vital signs: Vital Signs Temp 97 F L 07/26/18 04:00 Pulse 50 L 07/26/18 04:00 Resp 16 07/26/18 04:00 BP 185/87 07/26/18 04:00 Pulse Ox 97 07/26/18 04:00 Intake & Output 07/25/18 07/26/18 07/26/18 18:59 06:59 18:59 Intake Total 666 600 Output Total 19995 Balance -1333 Weight 106.6 kg Intake: Intake, IV Titration 100 Amount Piperacillin-Tazobactam 3 100 .375 gm In Sodium Chloride 0.9% 100 ml @ 25 mls/hr IVPB Q12HR [facility] Rx #:[id number] Oral 666 500 Output: Urine 1999 2575 Other: Voiding Method Indwelling Catheter Indwelling Catheter # Voids 1 On examination is awake alert and follows commands but was sometimes unable to recall what city he was in otherwise he was oriented. HEENT exam no JVP neck supple no facial asymmetry Lungs are clear to auscultation good air entry bilaterally Heart sounds are unremarkable for any murmur rub gallop Abdomen soft nontender obese Extremity exam was trace edema Neurologically awake alert oriented to year, did not know his month, was unable to recall what city he was in but able 10 me what hospitalization. He moves all his extremities. He is feeling chilly and was just woken up from sleep. So this confusion may be just a transient issue with sleep - Labs CBC & Chem 7: 07/26/18 06:02 07/26/18 06:02 Labs: Abnormal Lab Results - Last 24 Hours (Table) 07/25/18 07/25/18 07/26/18 Range/Units 16:34 21:06 06:02 WBC 12.3 H (3.8-10.6) k/uL RBC 3.73 L (4.30-5.90) m/uL Hgb 10.5 L (13.0-17.5) gm/dL Hct 33.6 L (39.0-53.0) % Plt Count 452 H (150-450) k/uL Neutrophils # 11.0 H (1.3-7.7) k/uL Lymphocytes # 0.6 L (1.0-4.8) k/uL Potassium (3.5-5.1) mmol/L BUN (9-20) mg/dL Creatinine (0.66-1.25) mg/dL Glucose (74-99) mg/dL POC Glucose (mg/dL) 207 H 145 H (75-99) mg/dL Calcium (8.4-10.2) mg/dL 07/26/18 07/26/18 07/26/18 Range/Units 06:02 06:31 06:48 WBC (3.8-10.6) k/uL RBC (4.30-5.90) m/uL Hgb (13.0-17.5) gm/dL Hct (39.0-53.0) % Plt Count (150-450) k/uL Neutrophils # (1.3-7.7) k/uL Lymphocytes # (1.0-4.8) k/uL Potassium 3.2 L (3.5-5.1) mmol/L BUN 65 H (9-20) mg/dL Creatinine 3.19 H (0.66-1.25) mg/dL Glucose 29 L* (74-99) mg/dL POC Glucose (mg/dL) 33 L 133 H (75-99) mg/dL Calcium 8.3 L (8.4-10.2) mg/dL 07/26/18 Range/Units 07:54 WBC (3.8-10.6) k/uL RBC (4.30-5.90) m/uL Hgb (13.0-17.5) gm/dL Hct (39.0-53.0) % Plt Count (150-450) k/uL Neutrophils # (1.3-7.7) k/uL Lymphocytes # (1.0-4.8) k/uL Potassium (3.5-5.1) mmol/L BUN (9-20) mg/dL Creatinine (0.66-1.25) mg/dL Glucose (74-99) mg/dL POC Glucose (mg/dL) 120 H (75-99) mg/dL Calcium (8.4-10.2) mg/dL Microbiology - Last 24 Hours (Table) 07/22/18 09:12 Blood Culture - Preliminary Blood No Growth after 72 hours Assessment and Plan Assessment: Impression 1. Acute kidney injury secondary to urinary retention and prerenal state. Improving with Love catheter as well as IV Lasix. creatinine went down to 3.19 from a peak of 4.45. 2. 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 The possibility of glomerulonephritis is being considered. No previous creatinines are available. Workup has shown Ultrasound shows 11.7 cm and 11.5 cm right and left kidney. Urine protein to creatinine ratio is 1 g range. His workup shows a proteinuria of 1 g range, normal serum and urine immunofixation c-ANCA p-ANCA negative double-stranded DNA and YUE negative complement C3 and C4 normal 2. E. coli urinary tract infection. 3. Urinary retention requiring Love catheter neck cyst. continuing temperature with chills, on appropriate antibiotics, Zosyn 4. Insulin-dependent diabetes mellitus. 5. Metabolic acidosis on IV and by mouth bicarb, discontinued yesterday 2018 but continued on oral bicarb. Bicarb today is 30 6. Iron deficiency anemia, and saturation was 7% dated 07/20/2018, currently hemoglobin is 10.5 7. Recommendation 1. Discontinue oral bicarb . 2. Maintain Lasix for right now 3. Kidney biopsy scheduled, likely on Friday. off of aspirin and Plavix. 4. Continue Love catheter 5. Monitor labs
[2018-07-26 11:14] LABS: Glucose,Whole Blood 169 mg/dL (75-99)
[2018-07-26] MEDS ORDERED: Potassium Replacement Protocol 1 EACH MISC MISCELLANE PRN (11:29)
[2018-07-26] MEDS: CARVEDILOL 12.5 MG TAB PO SCH ×2 (12:41→17:36)
[2018-07-26] MEDS: SODIUM BICARBONATE TAB 650 MG TAB PO SCH ×2 (12:44→21:29)
[2018-07-26] MEDS: FAMOTIDINE 20 MG TAB PO SCH (12:44)
[2018-07-26] MEDS: EZETIMIBE 10 MG TAB PO SCH (12:45)
[2018-07-26] MEDS: POTASSIUM CHLORIDE ER 20 MEQ TAB.ER PO SCH ×2 (12:46→17:35)
[2018-07-26] MEDS: LIDOCAINE 2% GEL 30 ML TUBE TOPICAL PRN ×2 (12:47→21:28)
[2018-07-26 16:21] LABS: Glucose,Whole Blood 283 mg/dL (75-99)
[2018-07-26 20:20] LABS: Magnesium 2.3 mg/dL (1.6-2.3); Potassium 3.8 mmol/L (3.5-5.1)
[2018-07-26 21:03] LABS: Glucose,Whole Blood 190 mg/dL (75-99)
[2018-07-26] MEDS: INSULIN DETEMIR (LEVEMIR) 100 UNIT/ML SYR SQ SCH (21:41)
[2018-07-26] MEDS: ACETAMINOPHEN TAB 325 MG TAB PO PRN (23:20)
[2018-07-27 05:46] LABS: Glucose,Whole Blood 44 mg/dL (75-99)
[2018-07-27 05:46] LABS: Glucose,Whole Blood 41 mg/dL (75-99)
[2018-07-27] MEDS: INSULIN ASPART (NovoLOG) 100 UNIT/ML VIAL SQ SCH ×7 (05:48→21:21)
[2018-07-27 06:00] LABS: Glucose,Whole Blood 46 mg/dL (75-99)
[2018-07-27 06:21] LABS: Glucose,Whole Blood 63 mg/dL (75-99)
[2018-07-27 06:44] LABS: Albumin 2.8 g/dL (3.5-5.0); Calcium 8.2 mg/dL (8.4-10.2); Potassium 3.7 mmol/L (3.5-5.1); Total Bilirubin 0.9 mg/dL (0.2-1.3); Total Protein 6.6 g/dL (6.3-8.2)
[2018-07-27] MEDS: CALCIUM ACETATE 667 MG CAP PO SCH ×3 (06:50→17:00)
[2018-07-27] MEDS: CARVEDILOL 12.5 MG TAB PO SCH ×2 (06:51→17:00)
[2018-07-27 06:56] LABS: Glucose,Whole Blood 129 mg/dL (75-99)
--- NOTE | 2018-07-27 08:39 | P.PN ---
Subjective Patient is seen in follow-up for acute kidney injury. Renal function gradually improving - creatinine 2.97 today. He was noted to have urinary retention with bladder scan showing over 800 mL of urine and now has a Love catheter in place. Urine output is documented as 4.5 L in the last 24 hours. Patient is noted to have ESBL E. coli UTI. He is maintained on Lasix 40 mg IV once daily. Ejection fraction 45-50%. Dyspnea improved. States his blood sugar was low overnight. He has been eating. He is awake and alert. Vital signs are stable. General: The patient appeared well nourished and normally developed. HEENT: Head exam is unremarkable. Neck is without jugular venous distension. LUNGS: Breath sounds decreased. HEART: Rate and Rhythm are regular. First and second heart sounds normal. No murmurs, rubs or gallops. ABDOMEN: Abdominal exam reveals normal bowel sounds. Non-tender and non- distended. No evidence of peritonitis. EXTREMITITES: No clubbing, cyanosis, or edema. Objective - Vital Signs Vital signs: Vital Signs Temp 98.6 F 07/27/18 04:00 Pulse 62 07/27/18 04:00 Resp 18 07/27/18 04:00 BP 96/51 07/27/18 04:00 Pulse Ox 99 07/27/18 04:00 Intake & Output 07/26/18 07/27/18 07/27/18 18:59 06:59 18:59 Intake Total 666 100 Output Total 1550 Balance 666 -1450 Weight 106.3 kg Intake: Intake, IV Titration 100 Amount Piperacillin-Tazobactam 3 100 .375 gm In Sodium Chloride 0.9% 100 ml @ 25 mls/hr IVPB Q12HR [facility] Rx #:[id number] Oral 666 Output: Urine 1550 Other: Voiding Method Indwelling Catheter Indwelling Catheter - Labs CBC & Chem 7: 07/26/18 06:02 07/27/18 05:49 Labs: Abnormal Lab Results - Last 24 Hours (Table) 07/26/18 07/26/18 07/26/18 Range/Units 11:12 16:16 21:02 Chloride (98-107) mmol/L BUN (9-20) mg/dL Creatinine (0.66-1.25) mg/dL Glucose (74-99) mg/dL POC Glucose (mg/dL) 169 H 283 H 190 H (75-99) mg/dL Calcium (8.4-10.2) mg/dL Albumin (3.5-5.0) g/dL 07/27/18 07/27/18 07/27/18 Range/Units 05:39 05:41 05:49 Chloride 108 H (98-107) mmol/L BUN 57 H (9-20) mg/dL Creatinine 2.97 H (0.66-1.25) mg/dL Glucose 31 L* (74-99) mg/dL POC Glucose (mg/dL) 41 L 44 L (75-99) mg/dL Calcium 8.2 L (8.4-10.2) mg/dL Albumin 2.8 L (3.5-5.0) g/dL 07/27/18 07/27/18 07/27/18 Range/Units 05:58 06:20 06:49 Chloride (98-107) mmol/L BUN (9-20) mg/dL Creatinine (0.66-1.25) mg/dL Glucose (74-99) mg/dL POC Glucose (mg/dL) 46 L 63 L 129 H (75-99) mg/dL Calcium (8.4-10.2) mg/dL Albumin (3.5-5.0) g/dL Microbiology - Last 24 Hours (Table) 07/22/18 09:12 Blood Culture - Preliminary Blood No Growth after 96 hours Assessment and Plan Plan: Assessment: 1. Acute kidney injury secondary to ATN secondary to infection and urinary retention. Also component of cardiorenal syndrome. Creatinine peaked at 4.23 on July 23 and is 2.97 today. Creatinine in December 2017 was 1.0. No hydronephrosis noted on renal ultrasound. Serologic workup has been negative so far. Urine eosinophils negative. 2. ESBL E. coli urinary tract infection maintained on IV antibiotics. 3. Systolic CHF with ejection fraction of 45-50%. 4. Insulin-dependent diabetes mellitus. 5. Metabolic acidosis secondary to acute kidney injury maintained on oral sodium bicarbonate. Resolved. 6. Iron deficiency anemia. 7. Hyperphosphatemia secondary to acute kidney injury. Maintained on PhosLo. 8. Urinary retention. Currently has a Love catheter in place. Plan: Maintain Lasix 40 mg IV daily. Avoid nephrotoxins. Hold off on IV iron due to infection. Kidney biopsy scheduled for Friday. Aspirin and Plavix are currently held. I will give him IV DDAVP one hour prior to kidney biopsy. Maintain Love catheter. No urgent need for renal replacement therapy at this time. Discontinue sodium bicarbonate. Repeat electrolytes, including phosphorus level in the morning.
[2018-07-27] MEDS: FUROSEMIDE 10 MG/ML 4 ML VIAL IV SCH (09:09)
[2018-07-27] MEDS: PIPERACILLIN-TAZOBACTAM 3.375 GM in SODIUM CHLORIDE 0.9% 100 ML IVPB SCH ×2 (09:09→17:00)
[2018-07-27] MEDS: FAMOTIDINE 20 MG TAB PO SCH (09:09)
[2018-07-27] MEDS: EZETIMIBE 10 MG TAB PO SCH (09:11)
[2018-07-27 12:20] LABS: Glucose,Whole Blood 183 mg/dL (75-99)
[2018-07-27 16:35] LABS: Glucose,Whole Blood 176 mg/dL (75-99)
--- NOTE | 2018-07-27 17:16 | PN ---
PROGRESS NOTE DATE OF SERVICE: 07/27/2018. CHIEF COMPLAINT: Congestive heart failure and renal failure. HISTORY OF PRESENT ILLNESS: This gentleman is definitely doing better, he is a bit more awake and alert and is not nearly short of breath. PHYSICAL EXAM: Breath sounds are better bilaterally. Cardiac exam is unchanged. Abdomen is soft. IMPRESSION: 1. Chronic congestive heart failure. 2. Acute congestive heart failure. 3. Renal failure. PLAN: Continue to progress activity until he can be discharged. MMODL / IJN: [id number] /
--- NOTE | 2018-07-27 17:16 | PN ---
PROGRESS NOTE DATE OF SERVICE: 07/26/2018. CHIEF COMPLAINT: Congestive heart failure and renal failure. HISTORY OF PRESENT ILLNESS: This gentleman has been slowly improving, but he is very lethargic and drowsy today. It is reported that he stayed awake most of the night last night. PHYSICAL EXAM: He is difficult to arouse. Chest is clear. Cardiac exam is normal. The abdomen remains protuberant. IMPRESSION: 1. Congestive heart failure. 2. Renal failure. 3. Lethargy, possibly related to the lack of sleep. PLAN: Continue to follow his condition today in terms of whether not he becomes more awake and alert or develops other neurologic issues or problems. MMODL / IJN: [id number] /
[2018-07-27 20:55] LABS: Glucose,Whole Blood 240 mg/dL (75-99)
[2018-07-27] MEDS: INSULIN DETEMIR (LEVEMIR) 100 UNIT/ML SYR SQ SCH (21:21)
[2018-07-28] MEDS: PIPERACILLIN-TAZOBACTAM 3.375 GM in SODIUM CHLORIDE 0.9% 100 ML IVPB SCH ×4 (00:17→23:28)
[2018-07-28 05:43] LABS: Glucose,Whole Blood 162 mg/dL (75-99)
[2018-07-28 07:04] LABS: Magnesium 2.2 mg/dL (1.6-2.3); Phosphorus 3.3 mg/dL (2.5-4.5); Potassium 4.5 mmol/L (3.5-5.1)
[2018-07-28] MEDS: CARVEDILOL 12.5 MG TAB PO SCH ×2 (07:37→16:57)
[2018-07-28] MEDS: CALCIUM ACETATE 667 MG CAP PO SCH ×3 (07:37→16:57)
[2018-07-28] MEDS: INSULIN ASPART (NovoLOG) 100 UNIT/ML VIAL SQ SCH ×7 (07:37→20:55)
[2018-07-28] MEDS: FAMOTIDINE 20 MG TAB PO SCH (09:17)
[2018-07-28] MEDS: FUROSEMIDE 10 MG/ML 4 ML VIAL IV SCH (09:17)
[2018-07-28] MEDS: EZETIMIBE 10 MG TAB PO SCH (09:17)
--- NOTE | 2018-07-28 10:47 | P.PN ---
Subjective Patient is seen in follow-up for acute kidney injury. Renal function gradually improving - creatinine 2.81 today. He was noted to have urinary retention with bladder scan showing over 800 mL of urine and now has a Love catheter in place. Urine output has been adequate. Patient is noted to have ESBL E. coli UTI. He is maintained on Lasix 40 mg IV once daily. Ejection fraction 45-50%. Dyspnea improved. No active complaints at this time. Vital signs are stable. General: The patient appeared well nourished and normally developed. HEENT: Head exam is unremarkable. Neck is without jugular venous distension. LUNGS: Breath sounds decreased. HEART: Rate and Rhythm are regular. First and second heart sounds normal. No murmurs, rubs or gallops. ABDOMEN: Abdominal exam reveals normal bowel sounds. Non-tender and non- distended. No evidence of peritonitis. EXTREMITITES: No clubbing, cyanosis, or edema. Objective - Vital Signs Vital signs: Vital Signs Temp 97.5 F L 07/28/18 09:00 Pulse 70 07/28/18 09:01 Resp 18 07/28/18 09:01 BP 121/63 07/28/18 09:00 Pulse Ox 96 07/28/18 09:00 Intake & Output 07/27/18 07/28/18 07/28/18 18:59 06:59 18:59 Intake Total 1080 700 Output Total 0 800 750 Balance -970 -800 -50 Weight 106 kg Intake: IV 240 .9 @ 20 240 Intake, IV Titration 100 Amount Piperacillin-Tazobactam 3 100 .375 gm In Sodium Chloride 0.9% 100 ml @ 25 mls/hr IVPB Q8HR [facility] Rx# :[id number] Oral 1080 360 Output: Urine 0 800 750 Uretheral (Love) 850 750 Other: Voiding Method Indwelling Catheter Indwelling Catheter Indwelling Catheter # Voids 2 # Bowel Movements 1 - Labs CBC & Chem 7: 07/26/18 06:02 07/28/18 05:48 Labs: Abnormal Lab Results - Last 24 Hours (Table) 07/27/18 07/27/18 07/27/18 Range/Units 11:51 16:25 20:53 Carbon Dioxide (22-30) mmol/L BUN (9-20) mg/dL Creatinine (0.66-1.25) mg/dL Glucose (74-99) mg/dL POC Glucose (mg/dL) 183 H 176 H 240 H (75-99) mg/dL Calcium (8.4-10.2) mg/dL 07/28/18 07/28/18 Range/Units 05:42 05:48 Carbon Dioxide 32 H (22-30) mmol/L BUN 51 H (9-20) mg/dL Creatinine 2.81 H (0.66-1.25) mg/dL Glucose 126 H (74-99) mg/dL POC Glucose (mg/dL) 162 H (75-99) mg/dL Calcium 8.0 L (8.4-10.2) mg/dL Microbiology - Last 24 Hours (Table) 07/22/18 09:12 Blood Culture - Preliminary Blood No Growth after 120 hours Assessment and Plan Plan: Assessment: 1. Acute kidney injury secondary to ATN secondary to infection and urinary retention. Also component of cardiorenal syndrome. Creatinine peaked at 4.23 on July 23 and is 2.81 today. Creatinine in December 2017 was 1.0. No hydronephrosis noted on renal ultrasound. Serologic workup has been negative so far. Urine eosinophils negative. 2. ESBL E. coli urinary tract infection maintained on IV antibiotics. 3. Systolic CHF with ejection fraction of 45-50%. 4. Insulin-dependent diabetes mellitus. 5. Metabolic acidosis secondary to acute kidney injury maintained on oral sodium bicarbonate. Resolved. 6. Iron deficiency anemia. 7. Hyperphosphatemia secondary to acute kidney injury. Maintained on PhosLo. 8. Urinary retention. Currently has a Love catheter in place. Plan: Maintain Lasix 40 mg IV daily. Avoid nephrotoxins. Hold off on IV iron due to infection. Kidney biopsy scheduled for Friday. Aspirin and Plavix are currently held. I will give him IV DDAVP one hour prior to kidney biopsy. Maintain Love catheter. No urgent need for renal replacement therapy at this time.
[2018-07-28 11:36] LABS: Glucose,Whole Blood 130 mg/dL (75-99)
--- NOTE | 2018-07-28 14:48 | PN ---
PROGRESS NOTE CHIEF COMPLAINT: Congestive heart failure and renal failure. HISTORY OF PRESENT ILLNESS: This gentleman seems to be doing better. Breathing much better over the last day or two. He is probably close to being able to go home. Case was discussed with Cardiology and they will assess him today. PHYSICAL EXAM: He has scattered rales at the bases, but his chest is much more clear than it has been. Cardiac exam is normal and the abdomen is protuberant and soft. IMPRESSION: 1. Congestive heart failure. 2. Renal failure. PLAN: Progress activity and he may be able to go home soon. MMODL / IJN: [id number] /
[2018-07-28 16:53] LABS: Glucose,Whole Blood 144 mg/dL (75-99)
[2018-07-28 20:29] LABS: Glucose,Whole Blood 169 mg/dL (75-99)
[2018-07-28] MEDS: INSULIN DETEMIR (LEVEMIR) 100 UNIT/ML SYR SQ SCH (20:55)
[2018-07-28] MEDS: LIDOCAINE 2% GEL 30 ML TUBE TOPICAL PRN (22:02)
--- NOTE | 2018-07-28 23:04 | P.PN ---
Subjective Progress Note Date: 07/28/18 This is a 68-year-old male. Patient gives history that he was not eating or drinking very much at home and forgot to take his medications for 1 week. He collapsed while in the shower and was initially seen at [facility] and then transferred to [facility] for acute kidney injury and nephrology consultation. Patient has been followed by Dr. Tobias for acute kidney injury. His initial creatinine at [facility] was 4.7 and today he is at 4.25 with the BUN of 99. White count is 20.4 and hemoglobin 9.3. Renal ultrasound shows no renal mass or obstruction. There is moderate splenomegaly. Chest x-ray shows evidence of congestive heart failure that is new. Pulmonary perfusion imaging was negative for PE. Patient is followed by cardiology for systolic heart failure as well. 07/23/2018 patient continues to feel poorly but has no new acute changes. 07/24/2018 patient still feels poorly but without acute change. Being followed by nephrology for his renal failure. Congestive heart failure is improved he is less short of breath. 07/25/2018 patient is more awake today and speech is clearer. Still with discomfort but is denying other acute new complaints at this point in time. No fevers or chills. 07/28/2018 patient is not feeling poorly. Plans are in process for his renal biopsy. Has been tolerating the antibiotic therapy well. Objective - Vital Signs Vital signs: Vital Signs Temp 96.6 F L 07/28/18 16:25 Pulse 66 07/28/18 16:26 Resp 18 07/28/18 16:26 BP 96/47 07/28/18 16:25 Pulse Ox 96 07/28/18 16:25 Intake & Output 07/28/18 07/28/18 07/29/18 06:59 18:59 06:59 Intake Total 1180 Output Total 800 2350 Balance -800 -1170 Weight 106 kg Intake: IV 240 .9 @ 20 240 Intake, IV Titration 100 Amount Piperacillin-Tazobactam 3 100 .375 gm In Sodium Chloride 0.9% 100 ml @ 25 mls/hr IVPB Q8HR [facility] Rx# :[id number] Oral 840 Output: Urine 800 2350 Uretheral (Love) 750 Other: Voiding Method Indwelling Catheter Indwelling Catheter - Exam Patient still feels poorly. Relates that he continues to urinate approximately every hour while he is supine in bed HEENT: Anicteric conjunctiva are pink and moist nasal mucosa grossly intact without significant lesions, there is no thrush. Neck: The neck is supple without significant lymphadenopathy or thyromegaly. Lungs: Good bilateral air entry without significant crackles or wheezing. There is no significant bronchial sounds. There is no egophony or dullness. Heart: Regular rate and rhythm with an audible S1-S2, no S3 no S4. There is no significant murmur click or rub, PMI was nondisplaced. Abdomen: Obese, lower extremities with generalized edema no open ulcers Positive bowel sounds soft and nontender without palpable masses or organomegaly. There was no guarding or rebound. Extremities: The upper extremities have excellent pulses they are symmetric, no significant petechiae or telangiectasia. No splinter hemorrhages were noted. The lower extremities are free from significant edema. The peripheral pulses were 2+ and symmetric. Neuro: Awake alert oriented to person place and time. There are no acute new gross focal sensory motor deficits. - Labs CBC & Chem 7: 07/26/18 06:02 07/28/18 05:48 Labs: Abnormal Lab Results - Last 24 Hours (Table) 07/28/18 07/28/18 07/28/18 Range/Units 05:42 05:48 11:33 Carbon Dioxide 32 H (22-30) mmol/L BUN 51 H (9-20) mg/dL Creatinine 2.81 H (0.66-1.25) mg/dL Glucose 126 H (74-99) mg/dL POC Glucose (mg/dL) 162 H 130 H (75-99) mg/dL Calcium 8.0 L (8.4-10.2) mg/dL 07/28/18 07/28/18 Range/Units 16:50 20:28 Carbon Dioxide (22-30) mmol/L BUN (9-20) mg/dL Creatinine (0.66-1.25) mg/dL Glucose (74-99) mg/dL POC Glucose (mg/dL) 144 H 169 H (75-99) mg/dL Calcium (8.4-10.2) mg/dL Microbiology - Last 24 Hours (Table) 07/22/18 09:12 Blood Culture - Final Blood No Growth after 144 hours Laboratory Results WBC 12.3 k/uL (3.8-10.6) H 07/26/18 06:02 RBC 3.73 m/uL (4.30-5.90) L 07/26/18 06:02 Hgb 10.5 gm/dL (13.0-17.5) L 07/26/18 06:02 Hct 33.6 % (39.0-53.0) L 07/26/18 06:02 MCV 90.1 fL (80.0-100.0) 07/26/18 06:02 MCH 28.1 pg (25.0-35.0) 07/26/18 06:02 MCHC 31.2 g/dL (31.0-37.0) 07/26/18 06:02 RDW 14.4 % (11.5-15.5) 07/26/18 06:02 Plt Count 452 k/uL (150-450) H 07/26/18 06:02 Neutrophils % 90 % 07/26/18 06:02 Lymphocytes % 5 % 07/26/18 06:02 Monocytes % 3 % 07/26/18 06:02 Eosinophils % 1 % 07/26/18 06:02 Basophils % 0 % 07/26/18 06:02 Neutrophils # 11.0 k/uL (1.3-7.7) H 07/26/18 06:02 Lymphocytes # 0.6 k/uL (1.0-4.8) L 07/26/18 06:02 Monocytes # 0.4 k/uL (0-1.0) 07/26/18 06:02 Eosinophils # 0.1 k/uL (0-0.7) 07/26/18 06:02 Basophils # 0.0 k/uL (0-0.2) 07/26/18 06:02 Hypochromasia Slight 07/22/18 05:42 D-Dimer 4.45 mg/L FEU (<0.60) H 07/18/18 17:46 Sodium 142 mmol/L (137-145) 07/28/18 05:48 Potassium 4.5 mmol/L (3.5-5.1) 07/28/18 05:48 Chloride 106 mmol/L (98-107) 07/28/18 05:48 Carbon Dioxide 32 mmol/L (22-30) H 07/28/18 05:48 Anion Gap 4 mmol/L 07/28/18 05:48 BUN 51 mg/dL (9-20) H 07/28/18 05:48 Creatinine 2.81 mg/dL (0.66-1.25) H 07/28/18 05:48 Est GFR (CKD-EPI)AfAm 26 (>60 ml/min/1.73 sqM) 07/28/18 05:48 Est GFR (CKD-EPI)NonAf 22 (>60 ml/min/1.73 sqM) 07/28/18 05:48 Glucose 126 mg/dL (74-99) H 07/28/18 05:48 POC Glucose (mg/dL) 169 mg/dL (75-99) H 07/28/18 20:28 POC Glu Scientific Associate SHYAM Liz Rg 07/28/18 20:28 Calcium 8.0 mg/dL (8.4-10.2) L 07/28/18 05:48 Phosphorus 3.3 mg/dL (2.5-4.5) 07/28/18 05:48 Magnesium 2.2 mg/dL (1.6-2.3) 07/28/18 05:48 Iron 15 ug/dL (65-175) L 07/20/18 09:34 TIBC 198 ug/dL (228-460) L 07/20/18 09:34 Iron Saturation 7.58 (15.00-50.00) L 07/20/18 09:34 Total Bilirubin 0.9 mg/dL (0.2-1.3) 07/27/18 05:49 AST 28 U/L (17-59) 07/27/18 05:49 ALT 32 U/L (21-72) 07/27/18 05:49 Alkaline Phosphatase 112 U/L (38-126) 07/27/18 05:49 Total Protein 6.6 g/dL (6.3-8.2) 07/27/18 05:49 Albumin 2.8 g/dL (3.5-5.0) L 07/27/18 05:49 Urine Color Light Red 07/18/18 15:36 Urine Appearance Turbid (Clear) 07/18/18 15:36 Urine pH 5.5 (5.0-8.0) 07/18/18 15:36 Ur Specific [place] 1.018 (1.001-1.035) 07/18/18 15:36 Urine Protein 1+ (Negative) H 07/18/18 15:36 Urine Glucose (UA) Negative (Negative) 07/18/18 15:36 Urine Ketones Negative (Negative) 07/18/18 15:36 Urine Blood Large (Negative) H 07/18/18 15:36 Urine Nitrite Negative (Negative) 07/18/18 15:36 Urine Bilirubin Negative (Negative) 07/18/18 15:36 Urine Urobilinogen <2.0 mg/dL (<2.0) 07/18/18 15:36 Ur Leukocyte Esterase Large (Negative) H 07/18/18 15:36 Urine RBC >182 /hpf (0-5) H 07/18/18 15:36 Urine WBC >182 /hpf (0-5) H 07/18/18 15:36 Urine WBC Clumps Many /hpf (None) H 07/18/18 15:36 Urine Bacteria Occasional /hpf (None) H 07/18/18 15:36 Urine Eosinophils 0 % 07/19/18 15:15 Ur Random Creatinine 30.7 mg/dL 07/21/18 11:49 U Random Total Protein 37 mg/dL (<12) H 07/21/18 11:49 Serum DON Interpret SEE NOTE 07/19/18 06:04 Urine Immunofixation SEE NOTE 07/19/18 15:15 c-ANCA <1:20 Titer (<1:20) 07/19/18 06:04 p-ANCA <1:20 Titer (<1:20) 07/19/18 06:04 Double Strand DNA Ab NEGATIVE (NEGATIVE) 07/19/18 06:04 Anti-DNA Ab Interp <1.0 IU/mL 07/19/18 06:04 Complement C3 105.0 mg/dL (80.0-207.0) 07/19/18 06:04 Complement C4 22.2 mg/dL (10.0-53.0) 07/19/18 06:04 Hep Bs Antigen Non-Reactive (Non-Reactive) 07/18/18 15:21 Hep Bs Antibody Non-Reactive (Non-Reactive) 07/18/18 15:21 Hep Bs Antibody, Quant 3.5 mIU/mL 07/18/18 15:21 Hep C IgG Ab Non-Reactive (Non-Reactive) 07/18/18 15:21 Blood Type A Positive 07/28/18 05:48 Blood Type Confirm A Positive 07/26/18 06:02 Blood Type Recheck CABO Indicated 07/28/18 05:48 Antibody Screen NEGATIVE 07/28/18 05:48 Spec Expiration Date 07/31/2018234707/28/18 05:48 Microbiology 07/22/18 09:12 Blood Blood Culture - Final No Growth after 144 hours 07/18/18 15:36 Urine,Voided Urine Culture - Final Escherichia coli Assessment and Plan (1) Infection due to ESBL-producing Escherichia coli Narrative/Plan: 68-year-old male has multiple medical troubles including history of coronary artery bypass grafting, compartment syndrome to his left leg and a history of urinary symptoms. The patient relates that he gets up approximately every hour while he is sleeping. He denies dysuria but has had urinary infections. None is evidence of the ESBL E. coli urinary tract infection. Antimicrobial therapy adjusted to Zosyn for now. Patient is complaining of some cough will offer some Robitussin try to improve this. However could easily be a cardiac cough given his significant history of heart failure. Patient relates that he has not an oxygen therapy at home. Is being monitored as noted for his acute renal failure. Ultrasound without mass or obstruction but will ask a bladder scan to ensure that there is not some chronic retention occurring. There are no oral options available and will likely need to set up an outpatient course of antibiotic therapy likely at his local hospital of [place] after his discharge. 07/23/2018 patient feeling slightly better. With assistance to get to the restroom and is having difficulty with some loose stool but not kylee diarrhea. Requesting a bladder scan to ensure that the patient is emptying well. This discussed the nursing staff. Patient will need IV access so that he will build received outpatient antibiotic therapy at the time of his discharge. We'll likely changed Invanz for once a day treatment at his local hospital. Patient however is still quite short of breath is being treated for his heart failure. As in the nursing staff to inquire with the family if he is at his baseline functional status. Seems to be quite debilitated. 07/24/2018 patient seems to be less short of breath today. Still quite debilitated. There is notation of him potentially going to rehab after discharge. Currently receiving Zosyn for the ESBL UTI. Does seem to be tolerating this well continue for now and monitor. As noted the patient had evidence of large post void residual and Love catheters was placed he's being followed by nephrology and renal biopsies requested given his acute renal failure of undetermined etiology. 07/25/2018 the patient is feeling slightly better today. His sedimentation has improved somewhat in his speech is now more understandable. He is continuing to receive antibiotic therapy for increased ESBL E. coli urinary tract infection. He is being followed by nephrology for his acute renal failure of undetermined etiology. Renal biopsy is being scheduled for early next week after his anticoagulants have been held and risk of bleeding has been modulated. 07/28/2018 patient does feel better. Mentation is modestly clear. Tolerating antibiotic therapy well with Zosyn for the E. coli ESBL. We'll have his renal biopsy tomorrow. He will likely then only required a short further timeframe of antibiotic therapy. Urine output appears to be adequate at this time. Current Visit: Yes Status: Acute Code(s): A49.8 - OTHER BACTERIAL INFECTIONS OF UNSPECIFIED SITE; Z16.12 - EXTENDED SPECTRUM BETA LACTAMASE (ESBL) RESISTANCE SNOMED Code(s): 309041138
[2018-07-29] MEDS ORDERED: DESMOPRESSIN ACETATE 34 MCG in SODIUM CHLORIDE 0.9% 50 ML IVPB ONE (06:00)
[2018-07-29 06:12] LABS: Glucose,Whole Blood 167 mg/dL (75-99)
[2018-07-29 06:50] LABS: Mean Platelet Volume 7.8; Platelet Count 376 k/uL (150-450)
[2018-07-29 06:59] LABS: INR 1.1 (<1.2); Prothrombin Time 11.3 sec (9.0-12.0)
--- NOTE | 2018-07-29 09:12 | P.PN ---
Subjective Patient is seen in follow-up for acute kidney injury. Renal function gradually improving - creatinine 2.81 as of yesterday. He was noted to have urinary retention with bladder scan showing over 800 mL of urine and now has a Torres catheter in place. Urine output has been adequate. Patient is noted to have ESBL E. coli UTI. He is maintained on Lasix 40 mg IV once daily. Ejection fraction 45-50%. Dyspnea improved. No active complaints at this time. He is scheduled for kidney biopsy today. Vital signs are stable. General: The patient appeared well nourished and normally developed. HEENT: Head exam is unremarkable. Neck is without jugular venous distension. LUNGS: Breath sounds decreased. HEART: Rate and Rhythm are regular. First and second heart sounds normal. No murmurs, rubs or gallops. ABDOMEN: Abdominal exam reveals normal bowel sounds. Non-tender and non- distended. No evidence of peritonitis. EXTREMITITES: No clubbing, cyanosis, or edema. Objective - Vital Signs Vital signs: Vital Signs Temp 98.7 F 07/29/18 04:00 Pulse 60 07/29/18 04:00 Resp 18 07/29/18 04:00 BP 112/55 07/29/18 04:00 Pulse Ox 95 07/29/18 04:00 Intake & Output 07/28/18 07/29/18 07/29/18 18:59 06:59 18:59 Intake Total 1180 Output Total 2350 1000 Balance -1170 -1000 Weight 105.3 kg Intake: IV 240 .9 @ 20 240 Intake, IV Titration 100 Amount Piperacillin-Tazobactam 3 100 .375 gm In Sodium Chloride 0.9% 100 ml @ 25 mls/hr IVPB Q8HR [facility] Rx# :[id number] Oral 840 Output: Urine 2350 1000 Uretheral (Torres) 750 650 Other: Voiding Method Indwelling Catheter Indwelling Catheter - Labs CBC & Chem 7: 07/29/18 06:00 07/28/18 05:48 Labs: Abnormal Lab Results - Last 24 Hours (Table) 07/28/18 07/28/18 07/28/18 Range/Units 11:33 16:50 20:28 POC Glucose (mg/dL) 130 H 144 H 169 H (75-99) mg/dL 07/29/18 Range/Units 06:11 POC Glucose (mg/dL) 167 H (75-99) mg/dL Microbiology - Last 24 Hours (Table) 07/22/18 09:12 Blood Culture - Final Blood No Growth after 144 hours Assessment and Plan Plan: Assessment: 1. Acute kidney injury secondary to ATN secondary to infection and urinary retention. Also component of cardiorenal syndrome. Creatinine peaked at 4.23 on July 23 and is 2.81 as of yesterday. Creatinine in December 2017 was 1.0. No hydronephrosis noted on renal ultrasound. Serologic workup has been negative so far. Urine eosinophils negative. 2. ESBL E. coli urinary tract infection maintained on IV antibiotics. 3. Systolic CHF with ejection fraction of 45-50%. 4. Insulin-dependent diabetes mellitus. 5. Metabolic acidosis secondary to acute kidney injury maintained on oral sodium bicarbonate. Resolved. 6. Iron deficiency anemia. 7. Hyperphosphatemia secondary to acute kidney injury. Maintained on PhosLo. Better. 8. Urinary retention. Currently has a Torres catheter in place. Plan: Maintain Lasix 40 mg IV daily. Avoid nephrotoxins. Hold off on IV iron due to infection. Kidney biopsy scheduled for today. Aspirin and Plavix are currently held. I will give him IV DDAVP one hour prior to kidney biopsy. Add flomax. May d/c torres catheter today and monitor PVRs. No urgent need for renal replacement therapy at this time.
[2018-07-29] MEDS: INSULIN ASPART (NovoLOG) 100 UNIT/ML VIAL SQ SCH ×7 (10:08→21:31)
[2018-07-29] MEDS: CALCIUM ACETATE 667 MG CAP PO SCH ×3 (10:08→17:14)
[2018-07-29] MEDS: PIPERACILLIN-TAZOBACTAM 3.375 GM in SODIUM CHLORIDE 0.9% 100 ML IVPB SCH ×2 (10:09→14:36)
[2018-07-29 11:47] LABS: Glucose,Whole Blood 175 mg/dL (75-99)
[2018-07-29] MEDS: CARVEDILOL 12.5 MG TAB PO SCH ×2 (11:48→17:14)
--- NOTE | 2018-07-29 14:11 | P.PCN ---
Date of Procedure: 07/29/18 Preoperative Diagnosis: renal failure Postoperative Diagnosis: renal failure Procedure(s) Performed: renal biopsy Surgeon: Daniel Miller Estimated Blood Loss (ml): 50 Condition: stable Operative Findings: 3 18 cores lower pole left kidney to path, ct guide
[2018-07-29] MEDS: FUROSEMIDE 10 MG/ML 4 ML VIAL IV SCH (14:36)
[2018-07-29] MEDS: FAMOTIDINE 20 MG TAB PO SCH (14:36)
[2018-07-29] MEDS: EZETIMIBE 10 MG TAB PO SCH (14:36)
[2018-07-29] MEDS: TAMSULOSIN 0.4 MG CAP.ER.24H PO SCH (14:36)
--- NOTE | 2018-07-29 16:11 | CT ---
DATE OF EXAM: 07/29/2018 COMPARISON: NONE CT DLP: 1798 mGycm HISTORY: Renal failure PROCEDURE: Maximal barrier technique was utilized. After informed consent, the skin overlying a suit able path to the left kidney was localized using CT guidance, the skin was prepped and draped. Lidoc hiwot was used for local anesthesia. A skin kelly made with a scalpel. Using CT guidance, a 17-gauge needle was advanced into in position at the lateral and inferior cortex of the left kidney where coax ial placement of an 18-gauge needle was used and core biopsy obtained. Three passes made in total. Hemostasis was achieved. There was no immediate complication and patient remained in stable conditio n. Specimen submitted to Pathology. IMPRESSION: Status post CT guided core biopsy of left renal cortex, pathology pending. This procedur e performed by the undersigned.
[2018-07-29 17:03] LABS: Glucose,Whole Blood 262 mg/dL (75-99)
[2018-07-29 18:04] LABS: Basophils # (A) 0.1 k/uL (0-0.2); Basophils % (A) 1 %; Eosinophils # (A) 0.2 k/uL (0-0.7); Eosinophils % (A) 2 %; HCT 31.6 % (39.0-53.0); Hypochromasia Slight; Lymphocytes # (A) 0.8 k/uL (1.0-4.8); Lymphocytes % (A) 9 %; MCH 28.9 pg (25.0-35.0); MCHC 31.7 g/dL (31.0-37.0); MCV 91.1 fL (80.0-100.0); Mean Platelet Volume 7.6; Monocytes # (A) 0.3 k/uL (0-1.0); Monocytes % (A) 3 %; Neutrophils # (A) 7.4 k/uL (1.3-7.7); Neutrophils % (A) 84 %; Platelet Count 415 k/uL (150-450); RBC 3.47 m/uL (4.30-5.90); WBC 8.8 k/uL (3.8-10.6)
[2018-07-29 20:15] LABS: Glucose,Whole Blood 235 mg/dL (75-99)
[2018-07-29] MEDS: INSULIN DETEMIR (LEVEMIR) 100 UNIT/ML SYR SQ SCH (21:31)
[2018-07-30] MEDS: PIPERACILLIN-TAZOBACTAM 3.375 GM in SODIUM CHLORIDE 0.9% 100 ML IVPB SCH ×3 (00:26→13:19)
[2018-07-30 04:01] LABS: Glucose,Whole Blood 139 mg/dL (75-99)
[2018-07-30 05:52] LABS: Glucose,Whole Blood 138 mg/dL (75-99)
[2018-07-30 06:34] LABS: Glucose,Whole Blood 131 mg/dL (75-99)
[2018-07-30 06:54] LABS: Calcium 8.3 mg/dL (8.4-10.2); Magnesium 2.3 mg/dL (1.6-2.3)
[2018-07-30] MEDS: INSULIN ASPART (NovoLOG) 100 UNIT/ML VIAL SQ SCH ×4 (07:10→12:38)
[2018-07-30] MEDS: CALCIUM ACETATE 667 MG CAP PO SCH ×2 (07:11→12:37)
[2018-07-30] MEDS: CARVEDILOL 12.5 MG TAB PO SCH (07:11)
[2018-07-30 07:29] VITALS: RESP 18
[2018-07-30] MEDS: FAMOTIDINE 20 MG TAB PO SCH (08:16)
[2018-07-30] MEDS: TAMSULOSIN 0.4 MG CAP.ER.24H PO SCH (08:16)
[2018-07-30] MEDS: EZETIMIBE 10 MG TAB PO SCH (08:16)
[2018-07-30] MEDS: FUROSEMIDE 10 MG/ML 4 ML VIAL IV SCH (08:17)
[2018-07-30 10:00] LABS: HCT 28.4 % (39.0-53.0); HGB 9.3 gm/dL (13.0-17.5); Hypochromasia Slight; MCH 29.6 pg (25.0-35.0); MCHC 32.6 g/dL (31.0-37.0); MCV 90.9 fL (80.0-100.0); Mean Platelet Volume 8.2; Platelet Count 351 k/uL (150-450); RBC 3.13 m/uL (4.30-5.90); RDW 14.1 % (11.5-15.5)
--- NOTE | 2018-07-30 10:32 | P.PN ---
Subjective Patient is seen in follow-up for acute kidney injury. Renal function gradually improving - creatinine 2.69 today. Patient underwent kidney biopsy yesterday. Love catheter was also removed yesterday. He has been voiding on his own. Urine output has been adequate. Patient is noted to have ESBL E. coli UTI. He is maintained on Lasix 40 mg IV once daily. Ejection fraction 45-50%. Dyspnea improved. No active complaints at this time. Vital signs are stable. General: The patient appeared well nourished and normally developed. HEENT: Head exam is unremarkable. Neck is without jugular venous distension. LUNGS: Breath sounds decreased. HEART: Rate and Rhythm are regular. First and second heart sounds normal. No murmurs, rubs or gallops. ABDOMEN: Abdominal exam reveals normal bowel sounds. Non-tender and non- distended. No evidence of peritonitis. EXTREMITITES: No clubbing, cyanosis, or edema. Objective - Vital Signs Vital signs: Vital Signs Temp 98.7 F 07/30/18 07:27 Pulse 60 07/30/18 07:27 Resp 18 07/30/18 07:27 BP 131/59 07/30/18 07:27 Pulse Ox 99 07/30/18 07:27 Intake & Output 07/29/18 07/30/18 07/30/18 18:59 06:59 18:59 Intake Total 210 Output Total 1300 700 Balance -1090 -700 Weight 104.8 kg Intake: IV 210 .9 @ 20 160 Desmopressin Acetate 34 50 mcg In Sodium Chloride 0. 9% 50 ml @ 200 mls/hr IVPB ONCE ONE Rx#: [id number] Output: Urine 1300 700 Other: Voiding Method Indwelling Catheter Urinal Urinal - Labs CBC & Chem 7: 07/30/18 05:50 07/30/18 05:50 Labs: Abnormal Lab Results - Last 24 Hours (Table) 07/29/18 07/29/18 07/29/18 Range/Units 11:31 16:47 17:26 RBC 3.47 L (4.30-5.90) m/uL Hgb 10.0 L (13.0-17.5) gm/dL Hct 31.6 L (39.0-53.0) % Lymphocytes # 0.8 L (1.0-4.8) k/uL BUN (9-20) mg/dL Creatinine (0.66-1.25) mg/dL Glucose (74-99) mg/dL POC Glucose (mg/dL) 175 H 262 H (75-99) mg/dL Calcium (8.4-10.2) mg/dL 07/29/18 07/30/18 07/30/18 Range/Units 20:12 03:57 05:50 RBC (4.30-5.90) m/uL Hgb (13.0-17.5) gm/dL Hct (39.0-53.0) % Lymphocytes # (1.0-4.8) k/uL BUN 46 H (9-20) mg/dL Creatinine 2.69 H (0.66-1.25) mg/dL Glucose 123 H (74-99) mg/dL POC Glucose (mg/dL) 235 H 139 H (75-99) mg/dL Calcium 8.3 L (8.4-10.2) mg/dL 07/30/18 07/30/18 07/30/18 Range/Units 05:50 05:50 06:33 RBC 3.13 L (4.30-5.90) m/uL Hgb 9.3 L (13.0-17.5) gm/dL Hct 28.4 L (39.0-53.0) % Lymphocytes # (1.0-4.8) k/uL BUN (9-20) mg/dL Creatinine (0.66-1.25) mg/dL Glucose (74-99) mg/dL POC Glucose (mg/dL) 138 H 131 H (75-99) mg/dL Calcium (8.4-10.2) mg/dL Assessment and Plan Plan: Assessment: 1. Acute kidney injury secondary to ATN secondary to infection and urinary retention. Also component of cardiorenal syndrome. Creatinine peaked at 4.23 on July 23 and is 2.69 today. Creatinine in December 2017 was 1.0. No hydronephrosis noted on renal ultrasound. Serologic workup has been negative so far. Urine eosinophils negative. Status post kidney biopsy in July 29. Results pending. 2. ESBL E. coli urinary tract infection maintained on IV antibiotics. 3. Systolic CHF with ejection fraction of 45-50%. 4. Insulin-dependent diabetes mellitus. 5. Metabolic acidosis secondary to acute kidney injury maintained on oral sodium bicarbonate. Resolved. 6. Iron deficiency anemia. 7. Hyperphosphatemia secondary to acute kidney injury. Maintained on PhosLo. Better. 8. Urinary retention. Love catheter removed July 29. He has been voiding on his own. Plan: Maintain Lasix 40 mg IV daily - can be transitioned over to 40 mg orally once daily upon discharge. Avoid nephrotoxins. Stable to be discharged home from nephrology standpoint. He is to follow up outpatient in the next 1 week.
[2018-07-30 12:16] LABS: Glucose,Whole Blood 174 mg/dL (75-99)
[2018-07-30 15:19] VITALS: BMI 36.1
[2018-07-30 15:35] VITALS: BP 119/71; PULSE 67; TEMP 97.1
--- NOTE | 2018-07-30 16:54 | DS ---
DISCHARGE SUMMARY CHIEF COMPLAINT: Hypotension, dehydration and acute renal failure. HISTORY OF PRESENT ILLNESS AND PHYSICAL EXAM: Details of this man's history and physical can be found in the initial workup. LABORATORY STUDIES: While he was the hospital, he had laboratory studies, details of which can be found in the laboratory section of his chart. COURSE IN HOSPITAL: After admission, he was placed on bedrest and started on intravenous fluids and he was rehydrated. His course was complicated by his renal failure and a delicate cardiac situation with congestive heart failure. He finally began to improve as his diuresis was established and his kidney function started to return toward normal. He was seen and followed by Nephrology and Cardiology. 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 He was doing well. It was felt he could go home on the . He will be followed up at home with visiting nurses. His catheter was removed and he will go home on Flomax. He will be followed up by Nephrology and Cardiology and he will either go to his own primary physician or come to us for followup. FINAL DIAGNOSES: 1. Acute on chronic congestive heart failure, systolic and diastolic. 2. Dehydration. 3. Prerenal azotemia. 4. Chronic renal failure. 5. Insulin-dependent diabetes mellitus. 6. Obesity. OPERATIONS: None. CONSULTATION: Cardiology and Nephrology. He is improved. MMODL / IJN: [id number] /
--- NOTE | 2018-07-30 17:00 | PN ---
PROGRESS NOTE DATE OF SERVICE: 07/29/2018 CHIEF COMPLAINT: Congestive heart failure and renal failure. HISTORY OF PRESENT ILLNESS: This gentleman continues to improve. He is going for a renal biopsy today. He is getting close to the point where he could probably go home. PHYSICAL EXAMINATION: His chest is quite clear. Cardiac exam is unremarkable. Abdomen is protuberant, soft. He is much more alert and less short of breath. IMPRESSION: 1. Congestive heart failure. 2. Renal failure. PLAN: Renal biopsy today and then possibly home in the next day or two. MMODL / IJN: [id number] /
[2018-07-31] MEDS ORDERED: FUROSEMIDE 40 MG TAB PO SCH (09:00)
== END 2018-07-30 16:10 | disposition home health service (06) | DRG 682 ==
LOC: EC 16:07 → 3SCARD 16:12
PROVIDERS: ADMIT Family Medicine; ATTEND Family Medicine
PROC: 0TB03ZX Excision of Right Kidney, Percutaneous Approach, Diagnostic (ICD-10-PCS; principal; 2018-07-29)
DX: N17.0 Acute kidney failure with tubular necrosis (principal); I50.43 Acute on chronic combined systolic (congestive) and diastolic (congestive) heart failure; E87.2 Acidosis; I13.0 Hypertensive heart and chronic kidney disease with heart failure and stage 1 through stage 4 chronic kidney disease, or unspecified chronic kidney disease; N39.0 Urinary tract infection, site not specified; I95.9 Hypotension, unspecified; E11.22 Type 2 diabetes mellitus with diabetic chronic kidney disease; E83.39 Other disorders of phosphorus metabolism; R16.1 Splenomegaly, not elsewhere classified; E83.51 Hypocalcemia; J44.9 Chronic obstructive pulmonary disease, unspecified; B96.20 Unspecified Escherichia coli [E. coli] as the cause of diseases classified elsewhere; D50.9 Iron deficiency anemia, unspecified; E66.9 Obesity, unspecified; E78.5 Hyperlipidemia, unspecified; E86.0 Dehydration; I25.10 Atherosclerotic heart disease of native coronary artery without angina pectoris; K21.9 Gastro-esophageal reflux disease without esophagitis; T39.395A Adverse effect of other nonsteroidal anti-inflammatory drugs [NSAID], initial encounter; M19.90 Unspecified osteoarthritis, unspecified site; M54.9 Dorsalgia, unspecified; R01.1 Cardiac murmur, unspecified; R06.03 Acute respiratory distress; R31.9 Hematuria, unspecified; R33.9 Retention of urine, unspecified; Z16.12 Extended spectrum beta lactamase (ESBL) resistance; Z79.02 Long term (current) use of antithrombotics/antiplatelets; Z79.4 Long term (current) use of insulin; Z79.82 Long term (current) use of aspirin; Z79.899 Other long term (current) drug therapy; Z95.1 Presence of aortocoronary bypass graft; Z87.891 Personal history of nicotine dependence; Z68.36 Body mass index [BMI] 36.0-36.9, adult; Z83.3 Family history of diabetes mellitus
CPT/HCPCS: 36415; 71045; 71046; 76770; 78582; 80048; 80053; 81001; 82570; 83540; 83550; 83735; 84100; 84132; 84156; 85025; 85027; 85049; 85379; 85610; 86160; 86225; 86255; 86334; 86335; 86706; 86803; 86850; 86900; 86901; 87040; 87077; 87086; 87186; 87205; 87340; 88305; 93306; 94760; 99285